=== PATIENT | male | born 1970 | race African-American/Black ===

== ENCOUNTER 2019-08-07 20:11 | Inpatient (IN) | payer MEDICAID ==
[~2019-08-07] VITALS: Ht 180.3 cm; Wt 104.3 kg
--- NOTE | ~2019-08-07 | EC ---
PATIENT:JUAN MCKENNA DATE OF SERVICE: 08/07/19 SEX: M MEDICAL RECORD: [id number] DATE OF : 74 LOCATION:[place] [address] AGE OF PATIENT: 48 ADMISSION DATE: 08/07/19 REFERRING PHYSICIAN: INTERPRETING PHYSICIAN: AGNES ABDALLA MD ECHOCARDIOGRAM REPORT ECHO CHARGES 4 ECHO COMPLETE Date: 08/08/19 CLINICAL DIAGNOSIS: POSSIBLE CHF ECHOCARDIOGRAPHIC MEASUREMENTS (adult normal given) AC root (d.<3.7cm) 3.3 cm LV Septum d (<1.2 cm> 1.0 cm Valve Excursion 2.2 cm LV Septum (systole) 1.4 cm Left Atria (s.<4.0cm> 3.5 cm LVPW d(<1.2cm) 1.3 cm RV (d.<2.3cm) 3.9 cm LVPW (sytole) 1.4 cm LV diastole(<5.6CM) 5.1 cm MV E-F(>70mm/sec) cm LV systole 3.3 cm LVOT Diameter 1.6 cm MV exc.(>10mm) cm Est.ejection fraction (50-75%) % DOPPLER: LVIT cm/sec A 50 cm/sec E 55 cm/sec LA cm/sec RVSP 34.3 mmHg LVOT 100 cm/sec AOP1/2T m/s Asc. Ao 111 cm/sec RVOT 78 cm/sec RA cm/sec PA 93 cm/sec AV Gradient Peak 4.9 mmHg AV Mean 3.1 mmHg AV Area 1.7 cm MV Gradient Peak 4.0 mmHg MV Mean 2.2 mmHg MV Area cm COMMENTS: Java Scala Developer: Conchita [facility] Manager Operations And Procurement: 3 Dr. Bailey TAPE# PACS Pericardial Effusion N DATE OF SERVICE: Adequate 2D, color flow imaging, spectral Doppler, and M-Mode. Borderline LVH. LV internal dimensions are normal. Wall motion is normal. EF is greater than or equal to 55%. Aortic valve is tricuspid. No evidence of stenosis by Doppler interrogation. Left atrium is normal at 3.5 cm. Mitral valve shows no prolapse. Trace MR. Right-sided chambers are grossly normal. Trace TR. ECHOCARDIOGRAM REPORT [id number] JUAN MCKENNA TRANSINT:[id number] Voice Confirmation ID: [id number] DOCUMENT ID: [id number] AGNES ABDALLA MD CC: [id number] DICTATION DATE: 08/08/19 1609 ANGER CONTROL COUNSELOR: 08/08/19 2328 ADM IN [place] [id number] [place] [id number]
--- NOTE | 2019-08-07 20:25 | NUR ---
PT TRANSFERRED FROM [place] FOR SEPSIS AND DIALYSIS. PT WAS RECIEVING DIALYSIS AND BEGAN HAVING CHILLS AND WAS SENT TO ED WITH A FEVER. PT HAS NEGATIVE COVID TEST. PT DENIES ANY COMPLAINTS AT THIS TIME. NO ACUTE DISTRESS NOTED, BED IN LOWEST POSITION, CALL LIGHT WITHIN REACH, WILL CONTINUE TO MONITOR.
[2019-08-07] MEDS ORDERED: ACETAMINOPHEN325 MG PO (20:35)
[2019-08-07] MEDS ORDERED: AMITRIPTYLINE H50 MG PO (20:38)
[2019-08-07] MEDS ORDERED: LONITEN10 MG PO ×2 (20:39→20:50)
[2019-08-07] MEDS ORDERED: ASPIRIN EC81 M1 PO (20:39)
[2019-08-07] MEDS ORDERED: PROTONIX40 MG PO ×2 (20:40→20:51)
[2019-08-07] MEDS ORDERED: PLAVIX75 MG PO ×2 (20:40→20:51)
[2019-08-07] MEDS ORDERED: LIPITOR40 MG PO ×2 (20:40→20:51)
[2019-08-07] MEDS ORDERED: LYRICA300 MG PO ×2 (20:41→20:51)
[2019-08-07] MEDS ORDERED: COREG25 MG PO ×2 (20:41→20:51)
[2019-08-07] MEDS ORDERED: LANTUS INS100 UNITS/ SC ×2 (20:43→20:52)
[2019-08-07] MEDS ORDERED: BAYER CHEWABLE81 MG PO (20:50)
[2019-08-07] MEDS ORDERED: ELAVIL75 MG PO (20:50)
[2019-08-07] MEDS ORDERED: RENA-VITE TABL0.8 MG PO (20:52)
[2019-08-07 21:00] VITALS: BP 136/72
[2019-08-07 22:00] VITALS: BP 133/76
--- NOTE | 2019-08-07 22:00 | NUR ---
RECIEVED PT FROM ER WITH HOSPITAL STAFF AT BEDSIDE. ALERT AND ORIENTED X4. RESPIRATIONS EVEN AND UNLABORED. ST ON THE MONITOR. NO VISUAL CUES OF DISTRESS NOTED. DENIES ANY OTHER NEEDS. WILL CONTINUE TO MONITOR.
[2019-08-07 23:00] VITALS: BP 119/61
[2019-08-08] VITALS (14 sets, daily range): BP systolic 86–133; BP diastolic 51–98; Ht 180.3 cm; Wt 104.3 kg
--- NOTE | 2019-08-08 | NUR ---
VSS. ST ON MONITOR. NO VISUAL CUES OF DISTRESS NOTED. WILL CONTINUE TO MONITOR.
--- NOTE | 2019-08-08 02:00 | NUR ---
VSS. ST ON MONITOR. NO VISUAL CUES OF DISTRESS NOTED. WILL CONTINUE TO MONITOR.
[2019-08-08 04:54] LABS: BASOPHILS 0.4 % (0-2); EOSINOPHILS 0.4 % (0-7); HEMATOCRIT 39.4 % (42.0-54.0); HEMOGLOBIN 12.3 g/dL (13.5-17.5); IMMATURE GRANULOCYTES 0.2 % (0-5); LYMPHOCYTES 14.3 % (15-50); MCH 29.6 pg (26.0-34.0); MCHC 31.2 g/dL (31.0-37.0); MCV 94.7 fL (80.0-100.0); MEAN PLATELET VOLUME 10.1 fL (7.4-10.4); NEUTROPHILS 74.7 % (40-80); PLATELET COUNT 233 10x3/uL (130-400); RBC 4.16 10x6/uL (4.20-6.10); RDW 13.1 % (11.5-14.5); WBC 13.4 10x3/uL (4.8-10.8)
[2019-08-08 06:29] LABS: ALBUMIN 3.1 g/dL (3.4-5.0); ANION GAP 15.8 mmol/L (8-16); BILIRUBIN - TOTAL 0.58 mg/dL (0.2-1.3); CALCIUM 8.8 mg/dL (8.5-10.1); CARBON DIOXIDE 26.2 mmol/L (21.0-32.0); CREATININE - SERUM 12.2 mg/dL (0.6-1.3); MAGNESIUM - SERUM 2.3 mg/dL (1.8-2.4); PHOSPHOROUS 5.1 mg/dL (2.5-4.9); PROTEIN - SERUM 7.4 g/dL (6.4-8.2); VANCOMYCIN - RANDOM 41.9 ug/mL (10.0-20.0)
--- NOTE | 2019-08-08 07:00 | NUR ---
PT REPORT RECEIVED FROM SALES CLOSER NURSE. NO ACUTE SIGNS OF DISTRESS NOTED. PT RESTING IN BED. SHIFT ASSESSMENT COMPLETED. WILL CONTINUE TO MONITOR
--- NOTE | 2019-08-08 09:53 | NUR ---
PT RESTING IN BED COMFORTABLY. NO COMPLAINTS NOTED AT THIS TIME. WILL CONTINUE TO MONITOR
--- NOTE | 2019-08-08 11:45 | NUR ---
pt resting in bed. eating lunch tray. no complaints noted at this time. will continue to monitor
--- NOTE | 2019-08-08 13:00 | NUR ---
PT RESTING IN BED. NO COMPLAINTS NOTED AT THIS TIME. VSS. WILL CONTINUE TO MONITOR
--- NOTE | 2019-08-08 14:58 | NUR ---
PT RESTING IN BED. NO COMPLAINTS NOTED AT THIS TIME. RESTING. AWAKENS EASILY. WILL CONTINUE TO MONITOR
--- NOTE | 2019-08-08 17:10 | NUR ---
PT RESTING IN BED. FAMILY AT BEDSIDE. NO ACUTE SIGNS OF DISTRESS NOTED. WILL CONTINUE TO MONITOR
--- NOTE | 2019-08-08 19:45 | NUR ---
Shift assessment complete. Call light within reach. Bed in low position. Will continue to monitor.
--- NOTE | 2019-08-08 21:45 | NUR ---
No changes in condition. Denies needs at this time. Call light within reach. Bed in low position.
--- NOTE | 2019-08-08 23:45 | NUR ---
No change in patient condition. Call light within reach. Bed in low position. Denies needs. Will continue to monitor.
--- NOTE | 2019-08-09 00:30 | NUR ---
Patient requested sleeping aid so call to Dr. Chilel to obtain orders for sleeping aid. Returned to patient bedside at approximately 0045 and patient resting with eyes closed.
[2019-08-09 03:00] VITALS: BP 102/43
--- NOTE | 2019-08-09 03:21 | NUR ---
No change in patient condition. Call light in reach. Bed in low position Lab here to draw blood chemistry. Will continue to monitor.
[2019-08-09 03:35] LABS: HEMATOCRIT 36.7 % (42.0-54.0); HEMOGLOBIN 11.6 g/dL (13.5-17.5); MCH 29.7 pg (26.0-34.0); MCHC 31.6 g/dL (31.0-37.0); MCV 94.1 fL (80.0-100.0); MEAN PLATELET VOLUME 9.5 fL (7.4-10.4); PLATELET COUNT 200 10x3/uL (130-400); RDW 13.1 % (11.5-14.5); WBC 12.9 10x3/uL (4.8-10.8)
[2019-08-09 04:03] LABS: CALCIUM 8.5 mg/dL (8.5-10.1); CARBON DIOXIDE 26.9 mmol/L (21.0-32.0); CHLORIDE - SERUM 93 mmol/L (98-107); CREATININE - SERUM 15.1 mg/dL (0.6-1.3); GLUCOSE 217 mg/dL (74-106); POTASSIUM - SERUM 5.3 mmol/L (3.5-5.1); SODIUM 129 mmol/L (136-145); eGFR NON AFRICAN AMERICAN 4 mL/min (90-120)
[2019-08-09 04:06] LABS: CALC OSMOLALITY 283 mosm/kg (275-300); PHOSPHOROUS 6.6 mg/dL (2.5-4.9); TROPONIN-I < 0.017 ng/mL (0.000-0.060); UREA NITROGEN 62 mg/dL (7-18)
[2019-08-09 04:59] LABS: EOSINOPHILS 3 % (0-7); LYMPHOCYTES 34 % (15-50); MONOCYTES 7 % (2-11); NEUTROPHILS 54 % (40-80); PLATELET ESTIMATE NORMAL
--- NOTE | 2019-08-09 05:20 | NUR ---
Patient resting without complaints. On monitor with alarms set. Bed in low position with side rails up x 2. Denies pain. Call light within reach. AM care with bath and linens changed.
[2019-08-09 07:00] VITALS: BP 98/63
--- NOTE | 2019-08-09 07:00 | NUR ---
REPORT RECIEVED, SHIFT ASSESSMENT COMPLETE, PT IS ALERT AND ORIENTED, ON RA WITH 96% O2 SAT, ALL PPP, VSS, CALL LIGHT IN REACH
--- NOTE | 2019-08-09 09:00 | NUR ---
FAMILY AT BEDSIDE, UPDATE GIVEN
--- NOTE | 2019-08-09 10:36 | NUR ---
Nutrition follow-up: Diet: Renal ADA consistent CHO PO Intake 100% of breakfast this am Labs reviewed Wt: 229# HD today PO intake is good at this time. RDN following.
--- NOTE | 2019-08-09 11:00 | NUR ---
PT UP IN CHAIR, DENIES ANY NEEDS
--- NOTE | 2019-08-09 13:00 | NUR ---
NO NEEDS NOTED AT THIS TIME, WILL CON'T TO MONITOR
[2019-08-09 15:00] VITALS: BP 155/81
--- NOTE | 2019-08-09 15:15 | NUR ---
FAMILY AT BEDSIDE, UPDATE GIVEN
--- NOTE | 2019-08-09 17:08 | NUR ---
PT TO DIALYSIS AT THIS TIME, VIA WHEELCHAIR
[2019-08-09 20:30] VITALS: BP 149/77
--- NOTE | 2019-08-09 21:04 | NUR ---
PT TO ROOM 2110 FROM DIALYSIS VIA WHEELCHAIR ACCOMPANIED BY AND HOSPITAL STAFF.
[2019-08-10 04:30] VITALS: BP 102/60
[2019-08-10 05:13] LABS: BASOPHILS 0.4 % (0-2); EOSINOPHILS 3.6 % (0-7); HEMATOCRIT 36.8 % (42.0-54.0); HEMOGLOBIN 11.6 g/dL (13.5-17.5); IMMATURE GRANULOCYTES 0.3 % (0-5); LYMPHOCYTES 17.5 % (15-50); MCH 29.5 pg (26.0-34.0); MCHC 31.5 g/dL (31.0-37.0); MCV 93.6 fL (80.0-100.0); MEAN PLATELET VOLUME 10.3 fL (7.4-10.4); MONOCYTES 16.1 % (2-11); NEUTROPHILS 62.1 % (40-80); RBC 3.93 10x6/uL (4.20-6.10); RDW 13.1 % (11.5-14.5); WBC 14.1 10x3/uL (4.8-10.8)
[2019-08-10 05:18] LABS: PLATELET COUNT 266 10x3/uL (130-400)
[2019-08-10 05:29] LABS: ANION GAP 14.3 mmol/L (8-16); CALCIUM 8.6 mg/dL (8.5-10.1); CARBON DIOXIDE 25.5 mmol/L (21.0-32.0); CREATININE - SERUM 12.4 mg/dL (0.6-1.3); PHOSPHOROUS 6.1 mg/dL (2.5-4.9); POTASSIUM - SERUM 4.8 mmol/L (3.5-5.1); VANCOMYCIN - RANDOM 27.2 ug/mL (10.0-20.0)
--- NOTE | 2019-08-10 07:00 | NUR ---
BEDSIDE REPORT RECEIVED. SHIFT ASSESSMENT COMPLETED PER FLOWSHEET, SEE FLOWSHEET FOR INFORMATION. PT RESTING IN BED WATCHING TV WITH S/O AT BEDSIDE. PT DENIES ANY ACUTE NEEDS OR DISTRESS NOTED AT THIS TIME. BED IN LOWEST POSITION, CALL LIGHT WITHIN REACH. WILL CONT TO MONITOR.
--- NOTE | 2019-08-10 11:54 | NUR ---
PT DISCHARGED TO PERSONAL VEHICLE VIA WHEELCHAIR FROM ROOM 2110 ACCOMPANIED BY NURSE. PT DENIES ANY ACUTE NEEDS OR DISTRESS, VERBALIZED THAT HE HAD ALL HIS PERSONAL ITEMS HE BROUGHT WITH HIM. S/O AT BEDSIDE AND AGREED.
--- NOTE | 2019-08-11 21:09 | MORECARE ---
CASE MANAGEMENT DISCHARGE SUMMARY PATIENT: JUAN MCKENNA UNIT: [id number] ADM DATE: 08/07/19 AGE: 48 : 74 SEX: M ROOM/BED: D.2110 AUTHOR: YANA,DOC PHYSICIAN: REFERRING PHYSICIAN: ANTOLIN GUTIERREZ MD DATE OF SERVICE: 08/11/19 Discharge Plan Patient Name: JUAN MCKENNA Facility: [facility]:[place] : 1970 Planned Disposition: Home Anticipated Discharge Date: Discharge Date: 08/10/2019 Expected LOS: Initial Reviewer: [email or web address] Initial Review Date: 08/07/2019 Generated: 08/11/19 10:08 pm Comments DCP- Discharge Planning Updated by [email or web address]: Jaclyn Campbell on 08/11/19 8:[address] LATE ENTRY 08/10/19 Patient Name: JUAN MCKENNA Admission Status: ER Accout number: [id number] Admission Date: 08-07-2019 : 1970 Admission Diagnosis:SEPSIS, UNSPECIFIED ORGANISM Attending: ANTOLIN GUTIERREZ Current LOS: 3 Anticipated DC Date: Planned Disposition: Home Primary Insurance: MEDICAID [place] Discharge Planning Comments: CM met with patient to complete initial dc planning assessment. CM educated patient on the CM role and verbal consent given by patient to complete assessment. Patient lives at home with family. Patient is independent. At discharge patient plans to return home and feels this is a safe discharge. CM discussed availability of home health, rehab services, and medical equipment. Patient will have family to transport home. Patient denied known discharge needs at this time. CM will continue to follow and will assist as needed with dc plans/needs. Ink Technician: Jaclyn Campbell DCPIA - Discharge Planning Initial Assessment Updated by [email or web address]: Jaclyn Campbell on 08/11/19 9:06 pm * Is the patient Alert and Oriented? Yes * How many steps to enter\exit or inside your home? * PCP denia luke * Pharmacy [facility] or [facility] * Preadmission Environment Home with Family * ADLs Independent * Equipment Wheelchair * List name and contact numbers for known caregivers / representatives who currently or will assist patient after discharge: REINA MCKENNA -[phone] ION NAVA - [phone] * Verbal permission to speak to the caregivers and representatives has been obtained from the patient. Yes * Community resources currently utilized Home Health * Please name any agencies selected above. [facility] [place] - MWF @1000 * Additional services required to return to the preadmission environment? No * Can the patient safely return to the preadmission environment? Yes * Has this patient been hospitalized within the prior 30 days at any hospital? No Patient Name: JUAN MCKENNA Page [phone] at 2109 All edits/amendments must be made on the electronic document DICTATION DATE: 08/11/192107 MANAGER TRADE: OLIMPIA 08/11/192107 RPT#: [id number] DC DATE:08/10/19 STATUS: DIS IN [facility] [address] [place] [address] END OF REPORT
== END 2019-08-10 12:38 | disposition home or self-care (01) | DRG 872 ==
LOC: D.ER 20:11 → D.ICU 20:31 → D.M2 08-09 19:12
PROVIDERS: Family Medicine; Internal Medicine Nephrology; ADMIT Internal Medicine Nephrology; ATTEND Internal Medicine Nephrology
DX: A41.9 Sepsis, unspecified organism (principal); E11.9 Type 2 diabetes mellitus without complications; I10 Essential (primary) hypertension; I25.10 Atherosclerotic heart disease of native coronary artery without angina pectoris; E11.42 Type 2 diabetes mellitus with diabetic polyneuropathy; K21.9 Gastro-esophageal reflux disease without esophagitis; E66.9 Obesity, unspecified; I95.9 Hypotension, unspecified; F17.200 Nicotine dependence, unspecified, uncomplicated; Z68.32 Body mass index [BMI] 32.0-32.9, adult; R50.9 Fever, unspecified

== ENCOUNTER 2020-04-28 07:05 | Outpatient (CLI) | payer MEDICAID ==
[~2020-04-28] VITALS: Ht 180.3 cm; Wt 104.5 kg
--- NOTE | ~2020-04-28 | HEMODYNAMI ---
PATIENT:JUAN MCKENNA MEDICAL RECORD: [id number] : 74 LOCATION:[place] ADMISSION DATE: 04/28/20 Generatedon:112:25 Patient name: JUAN MCKENNA Patient #: [id number] SSN: : 1970 Date of study: 04/28/2020 Page: Of Hemodynamic Procedure Report Patient Data Patient Demographics Procedure consent was obtained First Name: JUAN Gender: Male Last Name: CLARISA : 1970 Patient #: [id number] Age: 49 year(s) Race: Black Additional ID: [id number] Contact details Address: [address] [place] [address] State: [place] City: [place] Zip code: [address] Past Medical History Allergies: No known allergies Admission Admission Data Admission Date: 04/28/2020 Admission Time: 7:05 Procedure Procedure Types Cath Procedure Peripheral Cath Diagnostic Procedure Abd/Extremity Extremities Left Upper Ext. Arteriogram Procedure Description Procedure Date Procedure Date: 04/28/2020 Procedure Start Time: 12:05 Procedure End Time: 12:25 Procedure Staff Name Yanci Ko MD Performing Physician NIEVES RODRÍGUEZ RT Monitor Shay Cary RT Scrub Janet Mojica RN Nurse Gianna Rebollar RN Nurse Procedure Data Cath Procedure Fluoroscopy Diagnostic fluoroscopy Total fluoroscopy Time: 3.5 time: 3.5 min min Diagnostic fluoroscopy Total fluoroscopy dose: 330 dose: 330 mGy mGy Contrast Material Contrast Material Type Amount (ml) Isovue 300 35 Entry Location Entry Primary Successful Side Size Upsize Upsize Entry Closure Succes sful Closure Location (Fr) 1 (Fr) 2 (Fr) Remarks Device Remarks Femoral Right 5 Fr Exoseal artery Procedure Medications Medication Administration Route Dosage Fentanyl I.V. 50 mcg Versed I.V. 1 mg Heparin Flush Bag added to field 2 bags (1000units/500ml NS) Lidocaine 1% added to field 20 Fentanyl I.V. 25 mcg Versed I.V. 0.5 mg Hemodynamics Rest Heart Rate: 97 (bpm) Snapshots Pre Cath Intra NCS Post Cath Vital Signs Time Heart Resp SPO2 etCO2 NIBP (mmHg) Rhythm Pain Sedation Rate (ipm) (%) (mmHg) Status Level (bpm) 11:46:02 97 10 100 154/108(138) NSR 0 (11) 10(A) , No pain 11:50:27 98 10 98 157/110(144) NSR 0 (11) 10(A) , No pain 11:54:51 97 11 98 155/117(134) NSR 0 (11) 10(A) , No pain 11:59:50 96 13 99 0 Measuring NSR 0 (11) 10(A) , No pain 12:00:25 98 12 97 25.7 162/105(137) NSR 0 (11) 10(A) , No pain 12:04:00 99 14 39.4 156/99(141) NSR 0 (11) 10(A) , No pain 12:08:59 97 10 44 Measuring NSR 0 (11) 10(A) , No pain 12:10:23 97 8 98 42.4 Time NSR 0 (11) 10(A) Exceeded , No pain 12:12:42 95 9 96 43.2 137/93(118) NSR 0 (11) 10(A) , No pain 12:16:56 95 9 41.7 125/97(122) NSR 0 (11) 10(A) , No pain 12:21:06 98 8 43.2 138/108(135) NSR 0 (11) 10(A) , No pain 12:25:18 96 13 38.6 129/108(127) NSR 0 (11) 10(A) , No pain Medications Time Medication Route Dose Verified Delivered Reason Notes Effe ctiveness by by 12:01:40 Fentanyl I.V. 50 Sherri Katz for mcg MD Rebollar sedation RN 12:01:50 Versed I.V. 1 mg Sherri Katz for MD Rebollar sedation RN 12:02:08 Heparin Flush added 2 M Víctor Ko used for Bag to bags MD FIERRO procedure (1000units/500ml field NS) 12:02:19 Lidocaine 1% added 20ml Sherri Ko for local to vial MD FIERRO anesthetic field 12:16:09 Fentanyl I.V. 25 M Víctor Katz for mcg MD Rebollar sedation RN 12:16:23 Versed I.V. 0.5 M Víctor Katz for mg MD Rebollar sedation contact center analyst Log Time Note 11:27:03 Use device set IR Diagnostic 11:27:06 ACIST Syringe (19143) opened to sterile field. 11:27:06 ACIST Hand Control (49377) opened to sterile field. 11:27:07 ACIST Manifold (83983) opened to sterile field. 11:27:07 Bag Decanter (2002S) opened to sterile field. 11:27:08 Sterile Angiographic Pack opened to sterile field. 11:27:09 Tegaderm 4 x 4 (1626W) opened to sterile field. 11:27:58 DOC Extension wire (85554) opened to sterile field. 11:27:58 MALONE 260 wire (I73571) opened to sterile field. 11:27:59 MICROPUNCTURE 4FR Cook (J49539) opened to sterile field. 11:28:00 SHEATH 5FR [place] (NHO757) opened to sterile field. 11:28:00 TUBING High Pressure Extension (IABP) opened to sterile field. 11:28:04 - 11:37:48 Janet Mojica RN sent for patient. Start room use. 11:37:51 Time tracking: Regular hours (M-F 7:00 - 5:00) 11:37:55 Plan of Care:Hemodynamics will remain stable., Cardiac rhythm will remain stable., Comfort level will be maintained., Respiratory function will remain adequate., Patient/ family verbilizes understanding of procedure., Procedure tolerated without complication., Recovers from procedure without complications.. 11:38:01 Patient received from Outpatients to IR Alert and oriented. Tansferred to table in Supine position. 11:38:02 Signed procedure consent form obtained from patient. 11:38:03 Warm blankets applied, and erika hugger turned on for patient comfort. 11:38:03 Correct patient and procedure confirmed by team. 11:38:04 ECG and BP/O2 sat monitors applied to patient. 11:38:05 - 11:38:12 H&P Date Dictated: 04/28/2020 H&P Addendum completed by physician on day of procedure. (MUST COMPLETE FOR ALL OUTPATIENTS). 11:38:14 Pre-procedure instructions explained to patient. 11:38:14 Pre-op teaching completed and patient verbalized understanding. 11:38:18 Patient NPO since Midnight. 11:38:28 Patient allergic to No known allergies 11:43:55 Is the patient allergic to Iodine/contrast media? No. 11:43:57 Is patient on blood thinner?No 11:43:58 Patient diabetic? Yes. 11:43:59 If diabetic: On Metformin? No 11:44:00 - 11:44:02 ----Pre-sedation anethsthesia assessment.---- 11:44:05 Previous problem with sedation/anesthesia? No ? 11:44:07 Snore? Yes 11:44:08 Sleep apnea? No 11:44:09 Deviated septum? No 11:44:10 Opens mouth fully? Yes 11:44:11 Sticks out tongue? Yes 11:44:16 Airway obstruction? Yes heart disease 11:44:20 Dentures? No ? 11:44:35 Vital chart was started 11:44:37 Baseline sample Acquired. 11:44:40 Full Disclosure recording started 11:44:45 - 11:46:17 Pre procedure: right dorsailis pedis pulse Doppler 11:46:20 Pre procedure: right posterior tibial pulse Doppler 11:48:01 IV patent on arrival in left hand with 0.9% NaCl at KVO. 11:48:11 Right groin area was prepped with chlora-prep and draped in sterile fashion 11:48:12 Alarms reviewed by RThania NThania 11:48:12 Sharps counted by scrub and verified by RThaniaNThania 11:48:14 - 12:00:35 Procedure started. 12:00:39 Physician arrived 12:00:41 --------ALL STOP TIME OUT------ 12:00:41 Final Timeout: patient, procedure, and site verified with staff and physician. All members of the team are in agreement. 12:00:43 Right groin site verified by team. 12:00:47 Fire Safety Assessment: A--An alcohol-based skin anteseptic being used preoperatively., C--Open oxygen or nitrous oxide is being used. 12:00:51 5) <15 or on dialysis Very severe, or end stage kidney failure. 12:01:11 Maximum allowable contrast dose (3.7 X eGFR X 0.75)13.8 ml. 12:01:40 Fentanyl 50 mcg I.V. was administered by Gianna Rebollar RN; for sedation; Verbal order read back and verified. 12:01:50 Versed 1 mg I.V. was administered by Gianna Rebollar RN; for sedation; Verbal order read back and verified. 12:02:08 Heparin Flush Bag (1000units/500ml NS) 2 bags added to field was administered by Sherri Ko MD; used for procedure; Verbal order read back and verified. 12:02:19 Lidocaine 1% 20ml vial added to field was administered by Sherri Ko MD; for local anesthetic; Verbal order read back and verified. 12:05:26 Local anesthetic to right femoral artery with Lidocaine 1% by Sherri Ko MD.INITIAL ACCESS ONLY 12:05:27 A 5 Fr sheath was inserted into the Right Femoral artery 12:07:13 Access obtained with 4Fr micropunture. 12:12:03 GLIDE WIRE ANGLE 260cm (DV1419) opened to sterile field. 12:12:03 TORQUE DEVICE PLASTIC .038 ( TD01) opened to sterile field. 12:14:36 GLIDE CATHETER 5FR ANGLED 65cm (CG507) opened to sterile field. 12:16:09 Fentanyl 25 mcg I.V. was administered by Gianna Rebollar RN; for sedation; Verbal order read back and verified. 12:16:23 Versed 0.5 mg I.V. was administered by Gianna Rebollar RN; for sedation; Verbal order read back and verified. 12:17:41 ROADRUNNER .035 260 glide wire (B09096) opened to sterile field. 12:19:19 EXOSEAL 5Fr (EX500) opened to sterile field. 12:19:34 Sheath removed intact; hemostasis achieved with Exoseal to the Right Femoral artery. 12:20:48 Procedure ended.(Physican Out) 12:21:03 Fluoroscopy time 03.50 minutes. 12:21:08 Fluoroscopy dose: 330 mGy 12:21:08 Flurop Dose total: 330 12:21:12 Contrast amount:Isovue 300 35ml. 12:21:37 Sharps counted by scrub and verified by R.N. 12:21:41 Post-op/insertion site Right Femoral artery dressed using a 4 x 4 and Tegaderm. 12:21:44 Post Procedure Pulses reassessed and unchanged 12:21:46 Post procedure instruction explained to patient.Patient verbalizes understanding. 12:21:47 Procedure and supply charges have been captured, reviewed, submitted an d are correct. 12:25:20 Vital chart was stopped ::23 Procedure ended. 12:25:23 Full Disclosure recording stopped Device Usage Item Name Manufacture Quantity Catalog Number Hospital Part Current Min imal Lot# / Charge Number Stock Stock Serial# Code ACIST Syringe Acist 1 26824 073485 049466 [id number] 20 (31929) Medical Systems Inc ACIST Hand Acist 1 30224 802842 669101 104205 5 Control Medical (91148) Systems Inc ACIST Acist 1 75804 480904 500954 853441 5 Manifold Medical (48916) Systems Inc Bag Decanter Microtek 1 2001S 278905 34161 517807 5 (2001S) Medical Inc. Sterile Cardinal 1 [id number] 198570 633082 5 Angiographic Health Pack Tegaderm 4 x 3M 1 1626W 263163 863272 451259 5 4 (1626W) SHEATH 5FR Terumo 2 DPG832 890584 894980 320045 5 [place] (DBQ366) DOC Extension Ruano 1 02395 773568 936385 495010 5 wire (40395) Vascular MALONE 260 [place] [facility] 1 N95279 381320 710662 308213 5 wire (K60246) MICROPUNCTURE [facility] 1 N30856 918432 973344 096710 5 4FR HelloWallet (T35629) TUBING High Merit 1 [id number] 691716 710339 266185 5 Pressure Medical Extension (IABP) GLIDE WIRE Terumo 1 NW9160 399483 718048 143615 5 ANGLE 260cm (WY3337) TORQUE DEVICE [place] 1 TD01 509843 364035 531495 5 PLASTIC .038 Scientific ( TD01) GLIDE Terumo 1 CG507 524896 074462 5 CATHETER 5FR ANGLED 65cm (CG507) ROADRUNNER Cook Medical 1 Z05251 723656 334765 977012 5 .035 260 glide wire (Z28150) EXOSEAL 5Fr Cardinal 1 EX500 310350 309380 910521 10 (EX500) Health Signature Audit [place] Stage Time Signature Unsigned Intra-Procedure 04/28/2020 NIEVES RODRÍGUEZ RT 12:25:39 PM (R) [facility] [address] [place] [address]
[~2020-04-28 07:05] MED LIST: ACETAMINOPHEN325 MG PO; AMITRIPTYLINE H50 MG PO; ASPIRIN EC81 M1 PO; BAYER CHEWABLE81 MG PO; COREG25 MG PO; ELAVIL75 MG PO; LANTUS INS100 UNITS/ SC; LIPITOR40 MG PO; LONITEN10 MG PO; LYRICA300 MG PO; PLAVIX75 MG PO; PROTONIX40 MG PO; RENA-VITE TABL0.8 MG PO
[2020-04-28 07:40] LABS: BASOPHILS 0.6 % (0-2); EOSINOPHILS 4.4 % (0-7); HEMATOCRIT 40.9 % (42.0-54.0); HEMOGLOBIN 13.1 g/dL (13.5-17.5); IMMATURE GRANULOCYTES 0.4 % (0-5); LYMPHOCYTE ABS# 2.42 10x3/uL (1.32-3.57); LYMPHOCYTES 17.4 % (15-50); MCH 29.1 pg (26.0-34.0); MCV 90.9 fL (80.0-100.0); MEAN PLATELET VOLUME 10.1 fL (7.4-10.4); MONOCYTES 12.6 % (2-11); NEUTROPHIL ABS# 8.99 10x3/uL (1.78-5.38); NEUTROPHILS 64.6 % (40-80); RDW 14.9 % (11.5-14.5); WBC 13.9 10x3/uL (4.8-10.8)
[2020-04-28 07:44] LABS: PLATELET COUNT 325 10x3/uL (130-400)
[2020-04-28 07:47] LABS: ANION GAP 18.5 mmol/L (8-16); CALCIUM 9.6 mg/dL (8.5-10.1); CREATININE - SERUM 12.1 mg/dL (0.6-1.3); POTASSIUM - SERUM 4.5 mmol/L (3.5-5.1)
[2020-04-28 07:51] LABS: APTT 27.6 SECONDS (22.8-39.4); INR 1.06 (0.85-1.17); PROTIME 12.8 SECONDS (11.6-15.0)
[2020-04-28 08:14] VITALS: Ht 180.3 cm; Wt 104.5 kg
--- NOTE | 2020-04-28 10:32 | NUR ---
1010 RETURNED TO 2515 FROM CTA, AWAITING FUTHER INSTRUCTIONS, WARM BLANKET SUPPLIED FOR COMFORT.
--- NOTE | 2020-04-28 13:19 | NUR ---
6216 SEE POST PROCEDURE CHECKLIST FOR VITAL SIGN TRENDS. AT BEDSIDE.
--- NOTE | 2020-04-28 13:29 | NUR ---
1325 RENAL REGULAR DIET SERVED, WILL FEED PT. SO HE WILL REMAIN AT 30 DEGREES ELEVATION.
--- NOTE | 2020-04-28 14:10 | NUR ---
1405 CLONIDINE .2MG PO RECEIVED FROM PHARMACY AND GIVEN. PT. ATE 100% RENAL ADA DIET.
--- NOTE | 2020-04-28 15:34 | NUR ---
1530 ROUNDS BY RADIOLOGY NURSE.
== END 2020-04-28 16:20 | disposition home or self-care (01) ==
LOC: D.SP 07:05 → D.RAD 10:00 → D.SP 10:00
PROVIDERS: Radiology Vascular & Interventional Radiology; ATTEND Internal Medicine
DX: N18.6 End stage renal disease (principal); Z99.2 Dependence on renal dialysis

== ENCOUNTER → 2020-05-05 10:30 | Outpatient (CLI) | payer MEDICAID ==
[2020-04-28 08:14] VITALS: BMI 32.1
== END | disposition home or self-care (01) ==
LOC: D.CT 10:30
PROVIDERS: ATTEND Radiology Vascular & Interventional Radiology
DX: T81.89XA Other complications of procedures, not elsewhere classified, initial encounter (principal)

== ENCOUNTER → 2020-05-21 09:40 | Day surgery (SDC) | payer MEDICAID ==
[~2020-05-21] VITALS: Ht 180.3 cm; Wt 109.1 kg
--- NOTE | ~2020-05-21 | HEMODYNAMI ---
PATIENT:JUAN MCKENNA MEDICAL RECORD: [id number] : 74 [id number] ADMISSION DATE: 05/21/20 Generatedon:113:02 Patient name: JUAN MCKENNA Patient #: [id number] SSN: : 1970 Date of study: 05/21/2020 Page: Of Hemodynamic Procedure Report Patient Data Patient Demographics Procedure consent was obtained First Name: JUAN Gender: Male Last Name: CLARISA : 1970 Patient #: [id number] Age: 49 year(s) Race: Black Additional ID: [id number] Contact details Address: [address] [place] [address] State: [place] City: [place] Zip code: [address] Past Medical History Allergies: No known allergies Admission Admission Data Admission Date: 05/21/2020 Admission Time: 9:40 Height (in.): 71 BSA: 2.28 (m2) Height (cm.): 180.34 BMI: 33.47 (kg/m2) Weight (lbs.): 240 Weight (kg.): 108.86 Procedure Procedure Types Cath Procedure Peripheral Cath Diagnostic Procedure Abd/Extremity Extremities Left Upper Ext. Arteriogram Procedure Description Procedure Date Procedure Date: 05/21/2020 Procedure Start Time: 11:56 Procedure Staff Name Function Sherri Ko MD Performing Physician Letitia Boykin RT Tool And Machine Maintainer Hayden STRANGE RN Nurse Shay Cary RT Scrub Procedure Data Cath Procedure Fluoroscopy Diagnostic fluoroscopy Total fluoroscopy Time: 6.7 time: 6.7 min min Diagnostic fluoroscopy Total fluoroscopy dose: dose: 1502 mGy 1502 mGy Contrast Material Contrast Material Type Amount (ml) Isovue 300 65 Entry Location Entry Primary Successful Side Size Upsize Upsize Entry Closure Succes sful Closure Location (Fr) 1 (Fr) 2 (Fr) Remarks Device Remarks Femoral Exoseal artery Diagnostic catheters Device Type Used For End Catheter Placement Merit Tanya COOPER 2 5Fr 40CM catheter ([id number]) Merit Impress [place] 5FR. 100CM catheter ([id number]) Merit ULTRA BOLUS FLUSH 5Fr 90CM catheter ([id number]) Procedure Medications Medication Administration Route Dosage Benadryl I.V. 50 mg Lidocaine 1% added to field 20 Heparin Flush Bag added to field 3 bags (1000units/500ml NS) Fentanyl I.V. 50 mcg Versed I.V. 1 mg Fentanyl I.V. 25 mcg Versed I.V. 0.5 mg Fentanyl I.V. 25 mcg Versed I.V. 0.5 mg Fentanyl I.V. 25 mcg Versed I.V. 0.5 mg Hemodynamics Rest BSA: 2.28 (m2) O2 Consumption: Estimated: 293.23 (ml/min) O2 Consumption indexed : Estimated:128.61 (ml/min/m) Heart Rate: 92 (bpm) Snapshots Pre Cath Intra NCS Post Cath Vital Signs Time Heart Resp SPO2 etCO2 NIBP (mmHg) Rhythm Pain Sedation Rate (ipm) (%) (mmHg) Status Level (bpm) 11:46:26 92 13 26.7 125/84(99) NSR 0 (11) 9(A) , No pain 11:50:30 92 12 42.1 117/87(115) NSR 0 (11) 9(A) , No pain 11:54:42 91 13 42.8 115/81(105) NSR 0 (11) 9(A) , No pain 11:58:52 92 15 93 41.2 126/85(109) NSR 0 (11) 9(A) , No pain 12:03:06 91 11 41.2 108/84(102) NSR 0 (11) 8(A) , No pain 12:07:09 92 10 38.9 113/90(108) NSR 0 (11) 8(A) , No pain 12:11:17 90 11 100 34.4 125/87(107) NSR 0 (11) 9(A) , No pain 12:15:27 93 11 100 43.5 122/96(113) NSR 0 (11) 9(A) , No pain 12:19:37 93 11 100 41.2 114/87(111) NSR 0 (11) 9(A) , No pain 12:23:43 92 14 100 48.1 119/94(115) NSR 0 (11) 8(A) , No pain 12:27:55 94 13 100 45 132/86(119) NSR 0 (11) 8(A) , No pain 12:32:07 91 10 100 43.5 118/99(114) NSR 0 (11) 8(A) , No pain 12:36:15 91 12 100 43.5 118/107(113) NSR 0 (11) 8(A) , No pain 12:40:27 91 10 100 37.4 107/85(102) NSR 0 (11) 8(A) , No pain 12:44:30 91 14 35.1 114/93(113) NSR 0 (11) 8(A) , No pain 12:48:36 90 11 100 35.1 120/107(117) NSR 0 (11) 8(A) , No pain 12:52:46 91 10 100 42.7 101/85(99) NSR 0 (11) 8(A) , No pain 12:57:45 90 17 100 42 114/76(103) NSR 0 (11) 8(A) , No pain Medications Time Medication Route Dose Verified Delivered Reason Notes Effe ctiveness by by 11:44:34 Benadryl I.V. 50 mg M J Long Minner for MD ALIE sedation RN 11:44:42 Lidocaine 1% added 20ml M J Long Minner for local to vial MD ALIE anesthetic field RN 11:44:55 Heparin Flush added 3 M J Long Minner used for Bag to bags MD ALIE procedure (1000units/500ml field RN NS) 11:58:56 Fentanyl I.V. 50 M J Long Minner for mcg MD ALIE sedation RN 11:59:02 Versed I.V. 1 mg M J Long Minner for MD ALIE sedation RN 12:11:45 Fentanyl I.V. 25 M J Long Minner for mcg MD ALIE sedation RN 12:11:49 Versed I.V. 0.5 M J Long Minner for mg MD ALIE sedation RN 12:19:38 Fentanyl I.V. 25 M J Long Minner for mcg MD ALIE sedation RN 12:19:40 Versed I.V. 0.5 M J Long Minner for mg MD ALIE sedation RN 12:31:29 Fentanyl I.V. 25 M Víctor Blake for mcg MD STRANGE sedation RN 12:31:32 Versed I.V. 0.5 M Víctor Blake for mg MD ALIE bruner redipper Log Time Note 10:37:28 Patient Height : 71 inches 10:37:36 Patient Weight : 240 lbs 10:38:04 Use device set IR Diagnostic 10:38:31 DOUBLE ENDED GUIEDWIRE DOC 145CM (S51609) opened to sterile field. 10:38:32 Micropuncture VSI 4FR kit opened to sterile field. 10:38:33 TUBING Contrast Injection High Pressure (JQT962Q) opened to sterile field. 10:38:34 SHEATH 5FR [place] (KVI821) opened to sterile field. 10:38:35 Tegaderm 4 x 4 (1626W) opened to sterile field. 10:38:36 Sterile Angiographic Pack opened to sterile field. 10:38:38 Bag Decanter (2002S) opened to sterile field. 10:38:40 ACIST Manifold (12088) opened to sterile field. 10:38:42 ACIST Hand Control (72250) opened to sterile field. 10:38:43 ACIST Syringe (81506) opened to sterile field. 10:38:48 - 11:33:52 Time tracking: Regular hours (M-F 7:00 - 5:00) 11:34:21 Plan of Care:Hemodynamics will remain stable., Cardiac rhythm will remain stable., Comfort level will be maintained., Respiratory function will remain adequate., Patient/ family verbilizes understanding of procedure., Procedure tolerated without complication., Recovers from procedure without complications.. 11:34:36 Patient received from Outpatients to IR Alert and oriented. Tansferred to table in Supine position. 11:34:44 Signed procedure consent form obtained from patient. 11:34:56 H&P Date Dictated: 05/21/2020 Within 30 days and on chart., H&P Addendum completed by physician on day of procedure. (MUST COMPLETE FOR ALL OUTPATIENTS). 11:35:01 Pre-procedure instructions explained to patient. 11:35:01 Pre-op teaching completed and patient verbalized understanding. 11:35:03 Family unavailable. 11:35:06 Patient NPO since Midnight. 11:35:22 Patient allergic to No known allergies 11:35:26 Is the patient allergic to Iodine/contrast media? No. 11:35:39 Is patient on blood thinner?No 11:35:52 Patient diabetic? Yes. 11:35:56 If diabetic: On Metformin? No 11:36:08 - 11:36:09 ----Pre-sedation anethsthesia assessment.---- 11:36:13 Previous problem with sedation/anesthesia? No ? 11:36:19 Snore? Yes 11:36:21 Sleep apnea? No 11:36:28 Deviated septum? No 11:36:30 Opens mouth fully? Yes 11:36:32 Sticks out tongue? Yes 11:36:40 Airway obstruction? Yes heart disease 11:36:44 Dentures? No ? 11:44:34 Benadryl 50 mg I.V. was administered by Hayden STRANGE RN; for sedation ; Verbal order read back and verified. 11:44:42 Lidocaine 1% 20ml vial added to field was administered by Hayden Daniel RN; for local anesthetic; Verbal order read back and verified. 11:44:55 Heparin Flush Bag (1000units/500ml NS) 3 bags added to field was administered by Hayden STRANGE RN; used for procedure; Verbal order read back and verified. 11:44:58 Vital chart was started 11:53:22 Baseline sample Acquired. 11:53:25 Full Disclosure recording started 11:53:26 - 11:53:34 Left groin area was prepped with chlora-prep and draped in sterile fashion 11:53:36 Alarms reviewed by Dirk Eason 11:53:37 - 11:53:42 5) <15 or on dialysis Very severe, or end stage kidney failure. 11:53:48 Fire Safety Assessment: A--An alcohol-based skin anteseptic being used preoperatively., C--Open oxygen or nitrous oxide is being used. 11:55:18 Physician arrived 11:55:19 --------ALL STOP TIME OUT------ 11:55:20 Final Timeout: patient, procedure, and site verified with staff and physician. All members of the team are in agreement. 11:56:10 Procedure started. 11:56:31 Local anesthetic to left femerol artery with Lidocaine 1% by Sherri Ko MD.INITIAL ACCESS ONLY 11:58:56 Fentanyl 50 mcg I.V. was administered by Hayden STRANGE RN; for sedation; Verbal order read back and verified. 11:59:02 Versed 1 mg I.V. was administered by Hayden STRANGE RN; for sedation; Verbal order read back and verified. 12:11:45 Fentanyl 25 mcg I.V. was administered by Hayden STRANGE RN; for sedation; Verbal order read back and verified. 12:11:49 Versed 0.5 mg I.V. was administered by Hayden STRANGE RN; for sedation; Verbal order read back and verified. 12:19:38 Fentanyl 25 mcg I.V. was administered by Hayden STRANGE RN; for sedation; Verbal order read back and verified. 12:19:40 Versed 0.5 mg I.V. was administered by Hayden STRANGE RN; for sedation; Verbal order read back and verified. 12:23:53 Arterial access obtained using ultrasound guidance. 12:31:15 AMPLATZ Super Stiff 75cm wire ([id number]) opened to sterile field. 12:31:29 Fentanyl 25 mcg I.V. was administered by Hayden STRANGE RN; for sedation; Verbal order read back and verified. 12:31:32 Versed 0.5 mg I.V. was administered by Hayden STRANGE RN; for sedation; Verbal order read back and verified. 12:40:19 A Pictorious Impress KA 2 5Fr 40CM catheter ([id number]) was advanced over the wire and used for . 12:40:27 A Pictorious Impress Lagunas 5FR. 100CM catheter ([id number]) was advanced over the wire and used for . 12:42:56 GLIDE WIRE ANGLE 260cm (KF7438) opened to sterile field. 12:43:04 TORQUE DEVICE PLASTIC .038 ( TD01) opened to sterile field. 12:47:56 A Pictorious ULTRA BOLUS FLUSH 5Fr 90CM catheter ([id number]) was advanced over the wire and used for . 12:54:25 A sheath was inserted into the Femoral artery 12:54:25 Sheath removed intact; hemostasis achieved with Exoseal to the Femoral artery. 12:54:35 EXOSEAL 5Fr (EX500) opened to sterile field. 12:56:02 Procedure ended.(Physican Out) 12:56:21 Fluoroscopy time 06.70 minutes. 12:56:27 Fluoroscopy dose: 1502 mGy 12:56:27 Flurop Dose total: 1502 12:56:50 Contrast amount:Isovue 300 65ml. 12:58:27 Procedure and supply charges have been captured, reviewed, submitted an d are correct. 12:58:32 Report given to Outpatients. 13:02:08 Vital chart was stopped Device Usage Item Name Manufacture Quantity Catalog Number Hospital Part Current [facility] Lot# / Charge Number Stock Stock Serial# Code DOUBLE ENDED Cook Medical 1 [id number] 111901 1 GUIEDWIRE DOC 145CM (H94866) Micropuncture VSI VASCULAR 1 7266V 585024 846667 5 VSI 4FR kit SOLUTIONS TUBING Merit 1 [id number] 351883 416262 766570 5 Contrast Medical Injection High Pressure (YBF404L) SHEATH 5FR Terumo 1 KAP427 835259 603517 633563 5 [place]uddy (YAS430) Tegaderm 4 x 4 3M 1 1626W 447138 092633 782266 5 (1626W) Sterile Cardinal 1 [id number] 529998 353356 5 Angiographic Health Pack Bag Decanter Microtek 1 2001S 160020 44635 199236 5 (2001S) Medical Inc. ACIST Manifold Acist 1 27171 053480 225842 823308 5 (47602) Medical Systems Inc ACIST Hand Acist 1 26847 726437 470815 887000 5 Control Medical (56795) Systems Inc ACIST Syringe Acist 1 82340 743526 606067 162410 20 (08382) Medical Systems Inc AMPLATZ Super [place] 1 [id number] 967386 114770 522730 5 Stiff 75cm Scientific wire ([id number]) Merit Impress Merit 1 19113IG9 770993 050244 5 KA 2 5Fr 40CM Medical catheter (49747BC9) Merit Impress Merit 1 [id number] 836219 185545 5 Lagunas 5FR. Medical 100CM catheter (169530RYO) GLIDE WIRE Terumo 1 DO1435 125561 974253 627070 5 ANGLE 260cm (GG9860) TORQUE DEVICE [place] 1 TD01 709171 257517 603883 5 PLASTIC .038 ( Scientific TD01) Merit ULTRA Merit 1 [id number] 582015 834944 5 BOLUS FLUSH Medical 5Fr 90CM catheter ([id number]) EXOSEAL 5Fr Cardinal 1 EX500 634065 845828 407524 10 (EX500) Health Signature Audit [place] Stage Time Signature Unsigned Intra-Procedure 05/21/2020 Leittia Boykin 1:02:03 PM RT(R) [place] [id number] [place] [address]
[~2020-05-21 09:40] MED LIST changes: +TORADOL10 MG
[2020-05-21 10:12] LABS: ANION GAP 18.7 mmol/L (8-16); CARBON DIOXIDE 26.4 mmol/L (21.0-32.0); CREATININE - SERUM 12.5 mg/dL (0.6-1.3); POTASSIUM - SERUM 5.1 mmol/L (3.5-5.1)
[2020-05-21 10:16] VITALS: Ht 180.3 cm; Wt 109.1 kg
[2020-05-21 10:30] LABS: APTT 31.3 SECONDS (22.8-39.4)
[2020-05-21 11:17] LABS: BASOPHILS 1.5 % (0-2); EOSINOPHILS 5.2 % (0-7); HEMATOCRIT 49.6 % (42.0-54.0); HEMOGLOBIN 15.3 g/dL (13.5-17.5); IMMATURE GRANULOCYTES 0.3 % (0-5); LYMPHOCYTE ABS# 2.34 10x3/uL (1.32-3.57); LYMPHOCYTES 21.6 % (15-50); MCH 29.5 pg (26.0-34.0); MCHC 30.8 g/dL (31.0-37.0); MCV 95.6 fL (80.0-100.0); MEAN PLATELET VOLUME 11.1 fL (7.4-10.4); MONOCYTES 16.2 % (2-11); NEUTROPHIL ABS# 5.99 10x3/uL (1.78-5.38); NEUTROPHILS 55.2 % (40-80); PLATELET COUNT 352 10x3/uL (130-400); RBC 5.19 10x6/uL (4.20-6.10); RDW 15.1 % (11.5-14.5); WBC 10.8 10x3/uL (4.8-10.8)
[2020-05-21 11:33] LABS: INR 1.06 (0.85-1.17); PROTIME 12.8 SECONDS (11.6-15.0)
--- NOTE | 2020-05-21 17:00 | NUR ---
DRESSING TO LEFT GROIN REMAINS CDI, NO HEMATOMA NOTED, AREA AROUND DRESSING SOFT. PT NOW ABLE TO GET UP AND DRESSED FOR DISCHARGE. PIV DC'D, CATH TIP INTACT, HELPING PT TO DRESS. PT STATES HE WILL GO TO BATHROOM FOR BM AFTER GETTING DRESSED.
--- NOTE | 2020-05-21 17:20 | NUR ---
DC INSTRUCTIONS REVIEWED WITH PT AND SPOUSE. COPIES GIVEN. BOTH VOICED UNDERSTANDING.
--- NOTE | 2020-05-21 17:30 | NUR ---
PATIENT DC'D TO POV, DC PACKET AND BELONGINGS WITH . ACCOMPANIED BY THIS NURSE AND JIMENA.
== END | disposition home or self-care (01) ==
LOC: D.SP 09:40 → EDSTATUS 10:30 → D.SP 10:30 → D.RAD 10:30
PROVIDERS: ATTEND Radiology Vascular & Interventional Radiology
DX: N18.6 End stage renal disease (principal); Z99.2 Dependence on renal dialysis; E11.9 Type 2 diabetes mellitus without complications; I25.10 Atherosclerotic heart disease of native coronary artery without angina pectoris; S41.102A Unspecified open wound of left upper arm, initial encounter; T81.89XA Other complications of procedures, not elsewhere classified, initial encounter

== ENCOUNTER → 2020-07-16 16:22 | Outpatient (CLI) | payer MEDICAID ==
[2020-05-21 10:16] VITALS: BMI 33.5
== END | disposition home or self-care (01) ==
LOC: D.CT 16:22
PROVIDERS: ATTEND Surgery
DX: I73.9 Peripheral vascular disease, unspecified (principal)

== ENCOUNTER 2020-07-30 09:57 | Inpatient (IN) | payer MEDICAID ==
[~2020-07-30] VITALS: Ht 180.3 cm; Wt 118.7 kg
--- NOTE | ~2020-07-30 | HEMODYNAMI ---
PATIENT:JUAN MCKENNA MEDICAL RECORD: [id number] : 74 [id number] ADMISSION DATE: 07/30/20 Generatedon:110:13 Patient name: JUAN MCKENNA Patient #: [id number] SSN: : 1970 Date of study: 08/04/2020 Page: Of Hemodynamic Procedure Report Patient Data Patient Demographics Procedure consent was obtained First Name: JUAN Gender: Male Last Name: CLARISA : 1970 Patient #: [id number] Age: 49 year(s) Race: Black Additional ID: [id number] Contact details Address: [address] [place] [address] State: [place] City: [place] Zip code: [address] Past Medical History Allergies: No known allergies Admission Admission Data Admission Date: 07/30/2020 Admission Time: 13:27 Room #: [facility] Height (in.): 71 BSA: 2.25 (m2) Height (cm.): 180.34 BMI: 32.64 (kg/m2) Weight (lbs.): 234 Weight (kg.): 106.14 Procedure Procedure Types Cath Procedure Peripheral Cath Diagnostic Procedure Abd/Extremity Extremities Right Upper Ext. Arteriogram Procedure Description Procedure Date Procedure Date: 08/04/2020 Procedure Start Time: 9:32 Procedure Staff Name Function Krunal Chiu MD Performing Physician Letitia Boykin RT Presales Senior Specialist Janet Mojica RN Nurse Gianna Rebollar RN Nurse NIEVES RODRÍGUEZ RT Scrub Procedure Data Cath Procedure Diagnostic catheters Device Type Used For End Catheter Placement Tree Lagunas 5FR. 100CM catheter ([id number]) Procedure Medications Medication Administration Route Dosage Lidocaine 1% added to field 20 Heparin Flush Bag added to field 3 bags (1000units/500ml NS) Fentanyl I.V. 100 mcg Versed I.V. 2 mg Hemodynamics Rest BSA: 2.25 (m2) O2 Consumption: Estimated: 290.77 (ml/min) O2 Consumption indexed : Estimated:129.23 (ml/min/m) Heart Rate: 94 (bpm) Snapshots Pre Cath Intra NCS Post Cath Vital Signs Time Heart Resp SPO2 etCO2 NIBP (mmHg) Rhythm Pain Sedation Rate (ipm) (%) (mmHg) Status Level (bpm) 9:08:02 117 5 68 39.1 No Cuff NSR 0 (11) 10(A) , No pain 9:13:01 116 11 37.6 Measuring NSR 0 (11) 10(A) , No pain 9:14:25 115 13 36.8 Time NSR 0 (11) 10(A) Exceeded , No pain 9:18:35 116 12 98 28.5 No Cuff NSR 0 (11) 10(A) , No pain 9:22:08 115 11 100 30.8 Aborted NSR 0 (11) 10(A) , No pain 9:25:07 115 11 100 28.5 123/111(116) NSR 0 (11) 10(A) , No pain 9:30:06 114 10 100 40.6 Measuring NSR 0 (11) 10(A) , No pain 9:31:19 115 12 100 37.6 133/120(129) NSR 0 (11) 10(A) , No pain 9:36:19 115 12 100 39.8 Measuring NSR 0 (11) 10(A) , No pain 9:36:41 115 13 100 38.3 93/56(62) NSR 0 (11) 10(A) , No pain 9:40:45 114 8 98 14.2 53/40(48) NSR 0 (11) 8(A) , No pain 9:43:43 113 7 98 12 Disturbed NSR 0 (11) 8(A) , No pain 9:47:02 113 8 99 13.5 Time NSR 0 (11) 8(A) Exceeded , No pain 9:50:37 112 8 98 12.7 Time NSR 0 (11) 8(A) Exceeded , No pain 9:52:05 116 9 99 41.4 112/83(104) NSR 0 (11) 8(A) , No pain 9:57:04 114 8 100 21.8 Measuring NSR 0 (11) 8(A) , No pain 9:58:14 115 9 100 39.8 175/130(141) NSR 0 (11) 8(A) , No pain 10:02:46 119 12 99 41.3 89/51(81) NSR 0 (11) 8(A) , No pain 10:06:47 119 10 99 12 60/44(49) NSR 0 (11) 8(A) , No pain 10:11:47 116 10 99 12.7 Measuring NSR 0 (11) 8(A) , No pain 10:12:27 117 10 98 21 181/154(172) NSR 0 (11) 8(A) , No pain Medications Time Medication Route Dose Verified Delivered Reason Notes Effect iveness by by 9:17:02 Lidocaine 1% added 20ml Krunal Hector used for to vial Aram Chiu MD procedure field MD 9:17:24 Heparin Flush added 3 Krunal Hector used for Bag to bags Aram Chiu MD procedure (1000units/500ml field NS) 9:37:48 Fentanyl I.V. 100 Krunal Gonzales for mcg Yunior Chiu RN sedation MD 9:38:04 Versed I.V. 2 mg Krunal Gonzales for Yunior Chiu RN sedation MD Procedure Log Time Note 8:40:01 Patient Height : 71 inches 8:40:01 Patient Weight : 234 lbs 8:40:25 Use device set IR Diagnostic 8:41:09 ACIST Syringe (79617) opened to sterile field. 8:41:10 ACIST Hand Control (40146) opened to sterile field. 8:41:11 ACIST Manifold (12992) opened to sterile field. 8:41:11 Bag Decanter (2001S) opened to sterile field. 8:41:12 Sterile Angiographic Pack opened to sterile field. 8:41:13 Tegaderm 4 x 4 (1626W) opened to sterile field. 8:41:13 Micropuncture VSI 4FR kit opened to sterile field. 8:41:14 SHEATH 5FR [place] (PIP667) opened to sterile field. 8:41:15 DOUBLE ENDED GUIEDWIRE DOC 145CM (H05887) opened to sterile field. 8:41:15 TUBING Contrast Injection High Pressure (BTP959E) opened to sterile field. 8:41:19 - 8:47:05 Time tracking: Regular hours (M-F 7:00 - 5:00) 8:47:28 Plan of Care:Hemodynamics will remain stable., Cardiac rhythm will remain stable., Comfort level will be maintained., Respiratory function will remain adequate., Patient/ family verbilizes understanding of procedure., Procedure tolerated without complication., Recovers from procedure without complications.. 8:47:38 Patient received from [employer] II to IR Alert and oriented. Tansferred to table in Supine position. 8:47:40 Signed procedure consent form obtained from patient. 8:47:53 H&P Date Dictated: 08/04/2020 Within 30 days and on chart.. 8:47:57 Pre-procedure instructions explained to patient. 8:47:58 Pre-op teaching completed and patient verbalized understanding. 8:47:58 Pre-op teaching completed and patient verbalized understanding. 8:48:01 Family in patients room. 8:48:03 Patient NPO since Midnight. 8:48:12 Patient allergic to No known allergies 8:48:19 Is the patient allergic to Iodine/contrast media? No. 8:49:35 Patient diabetic? Yes. 8:49:40 If diabetic: On Metformin? No 8:49:43 - 8:49:45 ----Pre-sedation anethsthesia assessment.---- 8:49:48 Previous problem with sedation/anesthesia? No ? 8:49:54 Snore? Yes 8:49:58 Sleep apnea? No 8:50:02 Deviated septum? No 8:50:06 Opens mouth fully? Yes 8:50:08 Sticks out tongue? Yes 8:50:16 Airway obstruction? No ? 8:50:36 Dentures? Yes secure 8:57:24 Pre procedure: right dorsailis pedis pulse Doppler 8:57:29 Pre procedure: right posterior tibial pulse Doppler 8:57:42 Bilateral groins area was prepped with chlora-prep and draped in steril e fashion 8:57:51 5) <15 or on dialysis Very severe, or end stage kidney failure. 8:57:57 Fire Safety Assessment: A--An alcohol-based skin anteseptic being used preoperatively., C--Open oxygen or nitrous oxide is being used. 8:58:01 - 9:07:11 ECG and BP/O2 sat monitors applied to patient. 9:07:12 Vital chart was started 9:10:45 SHIELD Sorbaview ([id number]) opened to sterile field. 9:11:22 Baseline sample Acquired. 9:11:24 Baseline sample Acquired. 9::28 Full Disclosure recording started 9::28 - 9:17:02 Lidocaine 1% 20ml vial added to field was administered by Krunal Chiu MD; used for procedure; Verbal order read back and verified. 9:17:24 Heparin Flush Bag (1000units/500ml NS) 3 bags added to field was administered by Krunal Chiu MD; used for procedure; Verbal order read back and verified. 9:21:31 Baseline sample Acquired. 9:31:40 Physician arrived 9:31:41 --------ALL STOP TIME OUT------ 9::42 Final Timeout: patient, procedure, and site verified with staff and physician. All members of the team are in agreement. 9:32:04 Procedure started. 9:32:09 Local anesthetic to right femoral artery with Lidocaine 1% by Krunal Chiu MD.INITIAL ACCESS ONLY 9:32:21 Sedation plan: IV Moderate Sedation Medication:Versed, Fentanyl 9:32:38 Arterial access obtained using ultrasound guidance. 9:37:48 Fentanyl 100 mcg I.V. was administered by Janet Mojica RN; for sedation; Verbal order read back and verified. 9:38:04 Versed 2 mg I.V. was administered by Janet Mojica RN; for sedation; Verbal order read back and verified. 9:52:31 A Merit Impress Lagunas 5FR. 100CM catheter ([id number]) was advanced over the wire and used for . 10:02:08 Procedure ended.(Physican Out) 10:13:00 unable to obtain access using ultrasound at either groin 10:13:02 Procedure and supply charges have been captured, reviewed, submitted an d are correct. 10:13:06 Report given to [employer]. 10:13:33 Vital chart was stopped Device Usage Item Name Manufacture Quantity Catalog Hospital Part Current [employer] l Lot# / Number Charge Number Stock Stock Serial# Code ACIST Syringe Acist 1 15016 501222 227165 422084 20 (42304) Medical Systems Inc ACIST Hand Acist 1 97017 307189 303850 034772 5 Control Medical (76469) Systems Inc ACIST Acist 1 79999 271662 160385 421084 5 Manifold Medical (56300) Systems Inc Bag Decanter Microtek 1 2002S 470909 42173 282846 5 (2002S) Medical Inc. Sterile Cardinal 1 [id number] 981040 689564 5 Angiographic Health Pack Tegaderm 4 x 3M 1 1626W 835655 041215 766185 5 4 (1626W) Micropuncture VSI VASCULAR 1 7266V 427629 945460 5 VSI 4FR kit SOLUTIONS SHEATH 5FR Terumo 1 NEN079 243273 397158 639632 5 [place] (VWS826) DOUBLE ENDED Cook Medical 1 G03993 201189 773694 1 GUIEDWIRE DOC 145CM (Q65726) TUBING Merit 1 [id number] 894256 827341 926766 5 Contrast Medical Injection High Pressure (ZLE107Z) SHIELD Centurion 1 [id number] 655744 108296 132730 5 Sorbaview (VT854SKF) Merit Impress Merit 1 [id number] 683227 081594 5 [facility] 5FR. 100CM catheter (030544NOE) Signature Audit [place] Stage Time Signature Unsigned Intra-Procedure 08/04/2020 Letitia Boykin 10:13:29 AM RT(R) [facility] [address] [place] [address]
--- NOTE | ~2020-07-30 | OP ---
PATIENT NAME: JUAN KAPOOR MEDICAL RECORD: [id number] :74 LOCATION:D. D.2109 ADMISSION DATE:07/30/20 SURGEON: SERAFIN SCHAFFER MD DATE OF OPERATION: 08/13/2020 PREOPERATIVE DIAGNOSES: 1. Buerger's disease. 2. Gangrene, right ring finger and left index finger and small finger. POSTOPERATIVE DIAGNOSES: 1. Buerger's disease. 2. Gangrene, right ring finger and left index finger and small finger. PROCEDURE PERFORMED: 1. Partial amputation, right ring finger. 2. Partial amputation, left index finger. 3. Partial amputation, left small finger. INDICATIONS FOR THE PROCEDURE: Mr. 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 His right ring finger has been very painful and he is concerned from an odor originating from the left index finger. He appears to have dry gangrene to these areas. His white blood cell count has been elevated. 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 I talked to him about options for conservative versus surgical management. He would like to proceed with surgery for amputation of these fingertips. Risks, benefits and alternatives of surgery were discussed with the patient and consent was obtained. DESCRIPTION OF PROCEDURE: The patient was met in the holding area where his identity and confirmation of the procedure was performed. The upper extremities were marked and he was taken to the operating room where he was placed supine on the operating table and anesthesia was administered. Tourniquet was applied to both arms and the arms were prepped and draped in a sterile fashion. The patient received preoperative antibiotics and timeout was performed before initiating the case. On initiation of the case, we began with the left upper extremity. The arm was exsanguinated. The tourniquet was raised. Total tourniquet time was 45 minutes. Began with the index finger and an incision was made just distal to the PIP joint, incising it through the skin and subcutaneous tissues dissected down to the middle phalanx to create flaps for our wound closure. The PIP joint was then exposed and the finger was removed at that joint. The tissues appeared to be swollen, but were clean. Cautery was used to obtain hemostasis at the digital arteries and the digital nerves were identified and trimmed proximally. The flexor tendons were cut. The wound was irrigated thoroughly with saline. The rongeur was also used to debride the cartilage over the end of the proximal phalanx. We then moved to the small finger. Again, our incision was made for our exposure and the finger was removed at the PIP joint. Digital arteries were identified and cauterized. The nerves were identified and cut proximally. Rongeur was used to debride the cartilage over the ends of the proximal phalanx. The wound was irrigated thoroughly with saline. We then proceeded with wound closure. The deep tissue was closed with PDS suture. The skin was closed with Prolene. We were able to trim our flaps to allow for good closure. We then applied a sterile dressing to this hand and turned our attention to the right hand. OPERATIVE REPORT [id number] JUAN KAPOOR We then moved to the right upper extremity. The arm was exsanguinated and tourniquet was raised. There was necrosis of the fingertip on the right hand as well as ulcer along the PIP joint radially. Our incision was made to amputate the finger at the PIP joint and we also included the ulcer in our excised tissue. The PIP joint was isolated and exposed and the finger was removed at this level. Tendons were trimmed proximally. There was quite a bit of bleeding on his right arm. The digital arteries were identified and cauterized. Digital nerves were identified and cut proximally. A rongeur was used to debride the cartilage at the end of the proximal phalanx and it was shortened back to the condyles given that we had to include the ulcer and our exposure. Wound was irrigated thoroughly with saline. The deep tissues were then closed with PDS and the skin was closed with Prolene. Sterile dressing was applied and this completed our procedure. The patient was turned back over to anesthesia where he was awakened and taken to recovery room in stable condition. POSTOPERATIVE PLAN: The patient is going to return to the floor for routine postoperative care. Continue his IV antibiotics for at least another 48 hours and we will keep the finger incisions clean and dry. Plan to see him back in clinic in 2 weeks. COMPLICATIONS: None. ESTIMATED BLOOD LOSS: 25 mL. ANESTHESIA: General. TRANSINT:[id number] Voice Confirmation ID: [id number] DOCUMENT ID: [id number] SERAFIN SCHAFFER MD CC: [id number] DICTATION DATE: 08/13/20 1005 PROFESSOR OF JOURNALISM: 08/13/20 1050 ADM IN [place] [id number] [place] [id number]
--- NOTE | ~2020-07-30 | HEMODYNAMI ---
PATIENT:JUAN MCKENNA MEDICAL RECORD: [id number] : 74 LOCATION:[place] [address] ADMISSION DATE: 07/30/20 Generatedon:117:12 Patient name: JUAN MCKENNA Patient #: [id number] SSN: : 1970 Date of study: 07/31/2020 Page: Of Hemodynamic Procedure Report Patient Data Patient Demographics Procedure consent was obtained First Name: JUAN Gender: Male Last Name: CLARISA : 1970 Patient #: [id number] Age: 49 year(s) Race: Black Additional ID: [id number] Contact details [address]: [address] [place] [address] State: [place] City: [place] Zip code: [address] Past Medical History Allergies: No known allergies Admission Admission Data Admission Date: 07/30/2020 Admission Time: 13:27 Room #: [facility] Height (in.): 71 BSA: 2.25 (m2) Height (cm.): 180.34 BMI: 32.64 (kg/m2) Weight (lbs.): 234 Weight (kg.): 106.14 Procedure Procedure Types Cath Procedure Peripheral Cath Diagnostic Procedure Abd/Extremity Extremities Left Upper Ext. Arteriogram Procedure Description Procedure Date Procedure Date: 07/31/2020 Procedure Start Time: 15:54 Procedure Staff Name Function Daniel Cook MD Performing Physician Letitia Boykin RT Agricultural Economics Professor NIEVES RODRÍGUEZ RT Scrub Gianna Rebollar RN Nurse Janet Mojica RN Nurse Procedure Data Cath Procedure Fluoroscopy Diagnostic fluoroscopy Total fluoroscopy Time: time: 18.3 min 18.3 min Diagnostic fluoroscopy Total fluoroscopy dose: 148 dose: 148 mGy mGy Contrast Material Contrast Material Type Amount (ml) Isovue 300 40 Procedure Medications Medication Administration Route Dosage Versed I.V. 1 mg Fentanyl I.V. 50 mcg Fentanyl I.V. 50 mcg Versed I.V. 1 mg Heparin Bolus I.V. 5000 units Lidocaine 1% added to field 20 Heparin Flush Bag added to field 2 bags (1000units/500ml NS) Fentanyl I.V. 50 mcg Fentanyl I.V. 50 mcg Hemodynamics Rest BSA: 2.25 (m2) O2 Consumption: Estimated: 286.18 (ml/min) O2 Consumption indexed : Estimated:127.19 (ml/min/m) Heart Rate: 88 (bpm) Snapshots Pre Cath Intra NCS Post Cath Vital Signs Time Heart Resp SPO2 etCO2 NIBP (mmHg) Rhythm Pain Sedation Rate (ipm) (%) (mmHg) Status Level (bpm) 15:36:52 88 8 98 43.3 170/118(136) NSR 0 (11) 10(A) , No pain 15:41:05 89 7 44.8 134/104(131) NSR 0 (11) 10(A) , No pain 15:45:24 85 7 95 47.8 139/124(133) NSR 0 (11) 10(A) , No pain 15:49:42 88 8 98 38.8 149/126(147) NSR 0 (11) 10(A) , No pain 15:53:58 89 7 29.8 133/116(127) NSR 0 (11) 10(A) , No pain 15:58:57 90 5 99 19.4 Measuring NSR 0 (11) 8(A) , No pain 16:00:21 89 5 99 43.3 Time NSR 0 (11) 8(A) Exceeded , No pain 16:01:53 90 4 99 43.3 130/106(117) NSR 0 (11) 8(A) , No pain 16:06:07 91 5 99 29.8 138/122(132) NSR 0 (11) 8(A) , No pain 16:10:23 90 6 98 51.5 127/117(125) NSR 0 (11) 8(A) , No pain 16:15:22 91 5 98 26.8 Measuring NSR 0 (11) 8(A) , No pain 16:16:46 90 5 98 22.4 Time NSR 0 (11) 8(A) Exceeded , No pain 16:20:02 92 5 98 13.4 Time NSR 0 (11) 8(A) Exceeded , No pain 16:22:09 90 7 98 20.9 116/102(108) NSR 0 (11) 8(A) , No pain 16:27:09 90 6 99 13.4 Measuring NSR 0 (11) 8(A) , No pain 16:27:19 90 6 98 11.2 104/90(96) NSR 0 (11) 8(A) , No pain 16:31:23 92 6 99 8.2 94/80(88) NSR 0 (11) 8(A) , No pain 16:33:38 90 6 100 11.2 87/70(81) NSR 0 (11) 8(A) , No pain 16:37:33 94 6 50 102/86(95) NSR 0 (11) 8(A) , No pain 16:41:35 92 6 99 34.3 100/86(97) NSR 0 (11) 8(A) , No pain 16:45:32 92 6 17.9 115/101(113) NSR 0 (11) 8(A) , No pain 16:49:38 92 6 98 44.8 118/90(116) NSR 0 (11) 8(A) , No pain 16:54:37 96 5 99 35.8 Measuring NSR 0 (11) 8(A) , No pain 16:54:58 92 6 98 43.3 129/75(111) NSR 0 (11) 8(A) , No pain 16:59:05 89 5 48.5 135/121(131) NSR 0 (11) 8(A) , No pain 17:04:05 95 6 97 44.8 Measuring NSR 0 (11) 8(A) , No pain 17:05:29 94 5 96 45.5 Time NSR 0 (11) 8(A) Exceeded , No pain 17:09:44 95 5 97 53.7 114/101(108) NSR 0 (11) 8(A) , No pain Medications Time Medication Route Dose Verified Delivered Reason Notes Effec tiveness by by 15:53:46 Versed I.V. 1 mg Daniel Gonzales for Joey Mojica RN sedation 15:54:00 Fentanyl I.V. 50 Daniel Gonzales mcg Joey Mojica RN, MD 16:04:25 Fentanyl I.V. 50 Daniel Gonzales for mcg Joey Mojica RN sedation 16:04:33 Versed I.V. 1 mg Daniel Gonzales for Joey Mojica RN sedation 16:08:27 Heparin Bolus I.V. 5000 Daniel Ramirezody used for units Joey Mojica RN procedure 16:24:15 Lidocaine 1% added 20ml Daniel Sanchez to vial Joey morrow MD, MD 16:24:28 Heparin Flush added 2 Daniel Sanchez Bag to bags Joey Cook (1000units/500ml field MD FIERRO NS) 16:56:47 Fentanyl I.V. 50 Daniel Ramirezody [place] [facility] [place]jica RN physician 17:01:22 Fentanyl I.V. 50 Daniel Ramirezody Per [facility] Joey Mojica RN physician Procedure Log Time Note 14:57:31 Patient Height : 71 inches 14:57:35 Patient Weight : 234 lbs 14:58:08 Use device set IR Diagnostic 14:58:54 Micropuncture VSI 4FR kit opened to sterile field. 14:58:56 SHEATH 5FR [place] (GIL342) opened to sterile field. 14:58:57 BENTSON 145cm wire ([id number]) opened to sterile field. 14:58:58 Tegaderm 4 x 4 (1626W) opened to sterile field. 14:58:59 Sterile Angiographic Pack opened to sterile field. 14:59:01 Bag Decanter (2002S) opened to sterile field. 14:59:06 - 15:31:36 Time tracking: Regular hours (M-F 7:00 - 5:00) 15:31:45 Plan of Care:Hemodynamics will remain stable., Cardiac rhythm will remain stable., Comfort level will be maintained., Respiratory function will remain adequate., Patient/ family verbilizes understanding of procedure., Procedure tolerated without complication., Recovers from procedure without complications.. 15:31:51 Patient received from Med II to IR Alert and oriented. Tansferred to table in Supine position. 15:31:56 Signed procedure consent form obtained from patient. 15:32:06 H&P Date Dictated: 07/31/2020 Within 30 days and on chart.. 15:32:08 Pre-procedure instructions explained to patient. 15:32:08 Pre-op teaching completed and patient verbalized understanding. 15:32:11 Family in waiting room. 15:32:14 Patient NPO since Midnight. 15:32:24 Patient allergic to No known allergies 15:32:44 Is the patient allergic to Iodine/contrast media? No. 15:32:47 Is patient on blood thinner?No 15:33:19 Patient diabetic? Yes. 15:33:22 If diabetic: On Metformin? No 15:33:25 - 15:33:26 ----Pre-sedation anethsthesia assessment.---- 15:33:45 Previous problem with sedation/anesthesia? No ? 15:33:48 Snore? Yes 15:33:51 Sleep apnea? No 15:33:55 Deviated septum? No 15:33:58 Opens mouth fully? Yes 15:33:59 Sticks out tongue? Yes 15:34:06 Airway obstruction? No ? 15:34:27 Dentures? Yes secure 15:34:46 Pre procedure: left dorsailis pedis pulse None 15:34:56 Left groin area was prepped with chlora-prep and draped in sterile fashion 15:34:59 Alarms reviewed by Dirk Eason 15:35:02 - 15:35:11 Baseline sample Acquired. 15:35:29 ECG and BP/O2 sat monitors applied to patient. 15:35:30 Vital chart was started 15:35:31 Baseline sample Acquired. 15:35:35 Full Disclosure recording started 15:35:37 - 15:51:40 Physician arrived 15:51:41 --------ALL STOP TIME OUT------ 15:51:43 Final Timeout: patient, procedure, and site verified with staff and physician. All members of the team are in agreement. 15:51:53 Left groin site verified by team. 15:52:21 Fire Safety Assessment: A--An alcohol-based skin anteseptic being used preoperatively., C--Open oxygen or nitrous oxide is being used., E--There are other possible contributors. 15:52:36 Physical assessment completed. ASA score P 2 - A patient with mild systemic disease as per Daniel Cook MD. 15:52:53 5) <15 or on dialysis Very severe, or end stage kidney failure. 15:52:59 Maximum allowable contrast dose (3.7 X eGFR X 0.75)13.75 ml. 15:53:16 Sedation plan: IV Moderate Sedation Medication:Versed 15:53:46 Versed 1 mg I.V. was administered by Janet Mojica RN; for sedation; Verbal order read back and verified. 15:54:00 Fentanyl 50 mcg I.V. was administered by Janet Mojica RN; ; Verbal order read back and verified. 15:54:02 Procedure started. 15:54:26 Local anesthetic to left femerol artery with Lidocaine 1% by Daniel Cook MD.INITIAL ACCESS ONLY 15:57:30 ROADRUNNER .035 260 glide wire ([id number]) opened to sterile field. 15:58:09 Trailblazer 0.035 135cm catheter ([id number]) opened to sterile field. 16:01:22 AMPLATZ Super Stiff 75cm wire ([id number]) opened to sterile field. 16:04:25 Fentanyl 50 mcg I.V. was administered by Janet Mojica RN; for sedation ; Verbal order read back and verified. 16:04:33 Versed 1 mg I.V. was administered by Janet Mojica RN; for sedation; Verbal order read back and verified. 16:08:27 Heparin Bolus 5000 units I.V. was administered by Janet Mojica RN; use d for procedure; Verbal order read back and verified. 16:24:15 Lidocaine 1% 20ml vial added to field was administered by Daniel hernandez MD; ; Verbal order read back and verified. 16:24:28 Heparin Flush Bag (1000units/500ml NS) 2 bags added to field was administered by Daniel Cook MD; ; Verbal order read back and verified. 16:24:46 CXI SUPPORT .018 150CM ANG catheter (G77305) opened to sterile field. 16:24:48 CHOICE PT Extra Support J 300cm guide wire ([id number]) opened to steril e field. 16:31:30 COPILOT Valve Control (8244515) opened to sterile field. 16:36:46 Inflate balloon Inflation number: 1 A NANOCROSS ELITE 2.5MM-2 MM X 210 X 150 ([id number]) was prepped and advanced across the Undefined1 , then inflated . 16:50:38 INFLATOR BasixTOUCH (IF8286) opened to sterile field. 16:50:43 CHOICE PT Extra Support J 300cm guide wire ([id number]) opened to steril e field. 16:56:47 Fentanyl 50 mcg I.V. was administered by Janet Mojica RN; Per physician; Verbal order read back and verified. 17:00:19 EXOSEAL 5Fr (EX500) opened to sterile field. 17:01:22 Fentanyl 50 mcg I.V. was administered by Janet Mojica RN; Per physician; Verbal order read back and verified. 17:04:38 Procedure ended.(Physican Out) 17:05:54 Fluoroscopy time 18.30 minutes. 17:05:59 Fluoroscopy dose: 148 mGy 17:05:59 Flurop Dose total: 148 17:06:03 Contrast amount:Isovue 300 40ml. 17:06:06 Procedure and supply charges have been captured, reviewed, submitted an d are correct. 17:11:44 Report given to Travel Desiya II. 17:12:12 Vital chart was stopped Intervention Summary Intervention Notes Time ActionType Lesion and Equipment Used Action# Pressure Duration Attributes 16:36:46 Inflate Undefined1 NANOCROSS ELITE 1 0 00:00 balloon 2.5MM-2 MM X 210 X 150 ([id number]) Device Usage Item Name Manufacture Quantity Catalog Number Hospital Part Current Minimal Lot# / Charge Number Stock Stock Serial# Code Micropuncture VSI VASCULAR 1 7266V 454305 439883 5 VSI 4FR kit SOLUTIONS SHEATH 5FR Terumo 1 [id number] 063207 387453 224270 5 [place] (RLE286) BENTSON 145cm Cook Medical 1 R71571 151914 039209 5 wire ([id number]) Tegaderm 4 x 4 3M 1 1626W 509085 851748 371735 5 (1626W) Sterile Cardinal 1 [id number] 520376 576260 5 Angiographic Health Pack Bag Decanter Microtek 1 2001S 123973 94519 298856 5 (2001S) Medical Inc. ROADRUNNER .035 Cook Medical 1 Y34772 329611 284839 180501 5 260 glide wire (C41520) Trailblazer Medtronic 1 ASC-035-135 844126 03001 572359 5 0.035 135cm catheter ([id number]) AMPLATZ Super [place] 1 [id number] 547511 546543 923141 5 Stiff 75cm wire Scientific ([id number]) CXI SUPPORT .018 Cook Medical 1 D34273 231977 394169 592246 5 150CM ANG catheter (R77062) CHOICE PT Extra [place] 1 [id number] 748881 083102 290439 5 Support J 300cm Scientific guide wire ([id number]) COPILOT Valve Ruano 1 [id number] 048352 306569 788754 5 Control Vascular (6954983) NANOCROSS ELITE Medtronic 1 [id number] 718611 556283 1 2.5MM-2 MM X 210 X 150 ([id number]) INFLATOR Merit 1 KE1552 587662 736244 674732 5 Anchor Sem[employer] Medical (PD8776) EXOSEAL 5Fr Cardinal 1 EX500 147652 466350 134044 10 (EX500) Health Signature Audit [place] Stage Time Signature Unsigned Intra-Procedure 07/31/2020 Letitia Boykin 5:12:08 PM RT(R) [place] [id number] [place] [address]
[2020-07-30 11:50] LABS: BASOPHILS 0.6 % (0-2); EOSINOPHILS 5.2 % (0-7); HEMATOCRIT 41.8 % (42.0-54.0); HEMOGLOBIN 13.2 g/dL (13.5-17.5); LYMPHOCYTES 12.6 % (15-50); MCHC 31.6 g/dL (31.0-37.0); MCV 91.8 fL (80.0-100.0); MEAN PLATELET VOLUME 7.4 fL (7.4-10.4); MONOCYTES 10.7 % (2-11); NEUTROPHILS 70.9 % (40-80); RBC 4.55 10x6/uL (4.20-6.10); RDW 15.8 % (11.5-14.5); WBC 13.8 10x3/uL (4.8-10.8)
[2020-07-30 11:54] LABS: CALCIUM 10.1 mg/dL (8.5-10.1); CARBON DIOXIDE 26.4 mmol/L (21.0-32.0); CREATININE - SERUM 13.1 mg/dL (0.6-1.3); PLATELET COUNT 478 10x3/uL (130-400); POTASSIUM - SERUM 5.4 mmol/L (3.5-5.1)
[2020-07-30] MEDS ORDERED: NEURONTIN600 MG PO (17:37)
[2020-07-30 17:46] VITALS: BP 105/68; BMI 32.8
--- NOTE | 2020-07-30 17:59 | NUR ---
RECEIVED PATIENT FROM ER VIA STRETCHER. PATIENT IS AWAKE ALERT AND ORIENTED. PLAN OF CARE REVIEWED AND ASSESSMENT HAS BEEN COMPLETED. PATIENT HAS AT BEDSIDE WHO ASSISTS HIM WITH QUESTIONS HE MAY NOT ANSWER. PATIENT DOES COMPLAIN OF PAIN AT THIS TIME IN HIS HAND. NURSE NOTES MULTIPLE WOUNDS TO BOTH HANDS.
--- NOTE | 2020-07-30 18:20 | NUR ---
DR BEE AND DR ABEL BOTH SEE PATIENT THIS AFTERNOON
[2020-07-31] VITALS (8 sets, daily range): BP systolic 106–141; BP diastolic 54–74; BMI 32.7
--- NOTE | 2020-07-31 03:16 | NUR ---
I have reviewed this patient and I concur with the Shift Assessment completed by the Licensed Practical Nurse today this shift.
[2020-07-31 07:00] LABS: BASOPHILS 2.3 % (0-2); EOSINOPHILS 7.2 % (0-7); HEMATOCRIT 40.3 % (42.0-54.0); HEMOGLOBIN 12.8 g/dL (13.5-17.5); LYMPHOCYTES 11.2 % (15-50); MCH 29.7 pg (26.0-34.0); MCHC 31.8 g/dL (31.0-37.0); MCV 93.3 fL (80.0-100.0); MEAN PLATELET VOLUME 7.8 fL (7.4-10.4); MONOCYTES 15.9 % (2-11); NEUTROPHILS 63.4 % (40-80); PLATELET COUNT 478 10x3/uL (130-400); RBC 4.32 10x6/uL (4.20-6.10); RDW 15.5 % (11.5-14.5)
[2020-07-31 07:04] LABS: WBC 9.5 10x3/uL (4.8-10.8)
[2020-07-31 07:14] LABS: INR 1.07 (0.85-1.17); PROTIME 12.9 SECONDS (11.6-15.0)
--- NOTE | 2020-07-31 07:22 | NUR ---
BEDSIDE REPORT RECEIVED. PATIENT RESTING WITH EYES CLOSED. RESP EVEN AND UNLAOBRED ON ROOM AIR. R WRIST WITH NS INFUSING AT 10.
[2020-07-31 07:46] LABS: ALBUMIN 3.1 g/dL (3.4-5.0); ANION GAP 16.7 mmol/L (8-16); BILIRUBIN - TOTAL 0.51 mg/dL (0.2-1.3); CALCIUM 9.8 mg/dL (8.5-10.1); CARBON DIOXIDE 26.7 mmol/L (21.0-32.0); CREATININE - SERUM 14.7 mg/dL (0.6-1.3); POTASSIUM - SERUM 5.4 mmol/L (3.5-5.1); PROTEIN - SERUM 7.9 g/dL (6.4-8.2)
--- NOTE | 2020-07-31 08:00 | NUR ---
PATIENT AWAKE AND ALERT, ABLE TO MAKE NEEDS KNOWN. NO CURRENT DISTRESS NOTED. SPOUSE AT BEDSIDE. RESP EVEN AND UNLABORED. O2 SAT 99 ON ROOM AIR. PATIENT IS NPO FOR A PROCEDURE. HEART SOUNDS REGULAR RATE AND RYTHYM. IV TO RIGHT WRIST. NS AT 10 LEFT AV NOT WORKING, R CHEST HEMISPLIT R FOOT HALF AMPUTATED, L BKA. BOWEL SOUNDS ACTIVE X 4 QUADS.
--- NOTE | 2020-07-31 17:00 | NUR ---
I have reviewed this patient and I concur with the Shift Assessment completed by the Licensed Practical Nurse today this shift.
--- NOTE | 2020-07-31 19:59 | NUR ---
REPORT RECIEVED FROM DAY NURSE. PT CURRENTLY IN HEMODIALYSIS. CALL WAS RECIEVED FROM ISABEL THAT PT NEEDED PAIN MEDICATION NOW. PAIN PILL DELIVERED TO DIALYSIS AT THIS TIME.
--- NOTE | 2020-07-31 20:25 | NUR ---
PT REMAINS IN DIALYSIS.
--- NOTE | 2020-07-31 20:39 | NUR ---
RETURN FROM DIALYSIS. CURRENTLY EATING PIZZA WITH A FAMILY MEMBER.
--- NOTE | 2020-07-31 21:00 | NUR ---
REPORT FROM DIALYSIS. PT WENT FOR 1 HR AND 15 MINUTES AND WILL GO BACK TO DIALYSIS IN THE AM. HE RECIEVED ALBUMIN 150ML. LABILE BP, UP AND DOWN THROUGHOUT THE PROCEDURE.
--- NOTE | 2020-08-01 00:25 | NUR ---
PT'S IV TO RIGHT WRIST NO LONGER PATENT. PT WITH GREAT PAIN TO RIGHT HAND AND UNABLE TO ESTABLISH A NEW PIV. CALL TO EDITH GIRALDO RN BUTTONER AND REQUESTED TO USE BLUE PORT OF HEMOSPLIT AND KEEP A 5ML/HR KVO GOING TO ELIMINATE NURSES HAVING TO HEPARINIZE PORT. ORDER RECIEVED. NS @ 5ML/HR UP AND INFUSING TO RIGHT CHEST WALL HEMOSPLIT BLUE PORT.
[2020-08-01 01:58] VITALS: BP 108/52
[2020-08-01 06:36] LABS: BASOPHILS 1.1 % (0-2); HEMATOCRIT 33.6 % (42.0-54.0); HEMOGLOBIN 10.5 g/dL (13.5-17.5); LYMPHOCYTES 8.6 % (15-50); MCH 29.1 pg (26.0-34.0); MCHC 31.3 g/dL (31.0-37.0); MCV 92.9 fL (80.0-100.0); MONOCYTES 12.4 % (2-11); NEUTROPHILS 71.9 % (40-80); PLATELET COUNT 427 10x3/uL (130-400); RBC 3.62 10x6/uL (4.20-6.10); RDW 15.6 % (11.5-14.5)
[2020-08-01 06:39] LABS: WBC 12.9 10x3/uL (4.8-10.8)
[2020-08-01 07:21] LABS: ALBUMIN 2.9 g/dL (3.4-5.0); BILIRUBIN - TOTAL 0.32 mg/dL (0.2-1.3); CALCIUM 9.4 mg/dL (8.5-10.1); CARBON DIOXIDE 25.4 mmol/L (21.0-32.0); CREATININE - SERUM 14.3 mg/dL (0.6-1.3); POTASSIUM - SERUM 5.4 mmol/L (3.5-5.1); PROTEIN - SERUM 6.3 g/dL (6.4-8.2)
[2020-08-01 08:06] VITALS: BP 110/61
[2020-08-01 12:50] VITALS: BP 141/69
--- NOTE | 2020-08-01 14:06 | NUR ---
0700 BEDSIDE SHIFT REPORT RECEIVED ALWKE ALERT IN BED NS INFUSING TO 10ML/HR TO BLUE PORT HEMESPLIT
--- NOTE | 2020-08-01 14:08 | NUR ---
1100 FAMILY MEMBERS AT BEDSIDE PROVIDING EMOTIONAL SUPPORT
--- NOTE | 2020-08-01 14:09 | NUR ---
1400 TRANSPORTED TO DIALYSIS
--- NOTE | 2020-08-01 20:00 | NUR ---
INITIAL ROUNDS AND ASSESSMENT COMPLETED AT 1945. PT ALERT/ORIENTED AND RESTING IN BED. AT BEDSIDE. NONLABORED RESPIRATIONS. IVF NS @ 20ML/HR INFUSING TO RIGHT SUBCLAVIAN HEMOSPLIT BLUE PORT. DRESSING C/D/I. CALL LIGHT IN REACH. DISCUSSED BEDTIME MEDS TO BE GIVEN.
[2020-08-01 20:42] VITALS: BP 130/97
--- NOTE | 2020-08-01 21:32 | NUR ---
BEDTIME MEDS GIVEN. SCHEDULED DOSE OF TORADOL. FSBS 155. PT DECLINED SS INSULIN AND DID NOT WANT THE INCREASED DOSE OF LANTUS, NOW AT 50UNITS. HE AGREED TO TAKE 45 UNITS. PT IS ITCHING ALL OVER AND BENADDRYL WILL BE GIVEN.
[2020-08-02 01:13] VITALS: BP 130/68
--- NOTE | 2020-08-02 01:49 | NUR ---
PAGED VIA ANSWERING SERVICE TO EDITH MAHER. PT C/O ITCHING AND WANTS BENADRYL. AWAITING CALL BACK.
--- NOTE | 2020-08-02 04:10 | NUR ---
REPAGED PRENATAL NURSE, CALL BACK THIS TIME AND REPORTED THAT PATIENT IS HAVING ALL OVER BODY ITCHING AND REQUESTING BENADRYL. NEW ORDER RECIEVED AND BENADRYL 25MG SIVP ADMINISTERED.
[2020-08-02 05:51] LABS: CREATININE - SERUM 11.1 mg/dL (0.6-1.3); MAGNESIUM - SERUM 2.6 mg/dL (1.8-2.4); VANCOMYCIN - RANDOM 24.3 ug/mL (10.0-20.0)
[2020-08-02 05:53] LABS: POTASSIUM - SERUM 4.4 mmol/L (3.5-5.1)
[2020-08-02 06:12] LABS: ANION GAP 13.3 mmol/L (8-16); CARBON DIOXIDE 28.1 mmol/L (21.0-32.0)
[2020-08-02 08:23] VITALS: BP 145/83
[2020-08-02 15:56] VITALS: BP 108/82
[2020-08-03 01:21] VITALS: BP 144/45
[2020-08-03 05:28] VITALS: BP 122/48
--- NOTE | 2020-08-03 08:07 | NUR ---
PT AMBULATING IN ROOM FROM RESTROOM, STEADY GAIT NOTED. PT RR EVEN NON LABORED, MEDS GIVEN INCLUDING PRN MEDS D/T LOOSE STOOLS AND HEART BURN. PT AAOX4, PLEASANT AND ANSWERS QUESTIONS APPROP. AT BEDSIDE. NO NEEDS VOICED AT THIS TIME. CLWR.
[2020-08-03 09:00] VITALS: BP 88/68
[2020-08-03 11:14] LABS: RBC 2.33 10x6/uL (4.20-6.10); WBC 29.6 10x3/uL (4.8-10.8)
[2020-08-03 11:20] LABS: HEMATOCRIT 21.8 % (42.0-54.0); HEMOGLOBIN 6.6 g/dL (13.5-17.5); MCH 28.5 pg (26.0-34.0); MCHC 30.5 g/dL (31.0-37.0); MCV 93.4 fL (80.0-100.0); MEAN PLATELET VOLUME 7.2 fL (7.4-10.4); PLATELET COUNT 332 10x3/uL (130-400); RDW 15.8 % (11.5-14.5)
[2020-08-03 11:29] LABS: ANION GAP 20.7 mmol/L (8-16); CALCIUM 8.9 mg/dL (8.5-10.1); CARBON DIOXIDE 21.7 mmol/L (21.0-32.0); CREATININE - SERUM 13.7 mg/dL (0.6-1.3); VANCOMYCIN - RANDOM 20.4 ug/mL (10.0-20.0)
[2020-08-03 11:31] LABS: POTASSIUM - SERUM 6.4 mmol/L (3.5-5.1)
--- NOTE | 2020-08-03 11:31 | NUR ---
NOTIFIED CELE REGARDING HEMOGLOBIN LEVEL - ORDERS RECEIVED.
--- NOTE | 2020-08-03 11:50 | NUR ---
CONSENTS SIGNED AT THIS TIME BY WITH PT APPROVAL. PT RESTING , RR EVEN NON LABORED. NO NEEDS VOICED. CLWR.
[2020-08-03 12:00] VITALS: BP 108/67
[2020-08-03 13:02] VITALS: Ht 180.3 cm; Wt 118.7 kg
--- NOTE | 2020-08-03 13:41 | NUR ---
Nutrition Follow-up: Pt sleeping soundly this AM. reports that pt's appetite/PO intake have been good but did not eat this AM 2/2 diarrhea. Likes Nepro. HD MWF. Noted plans for a R UE arteriogram tomorrow. Diet: Renal ADA; NPO p MN Wt: 235# (07/31) Labs noted: Na 133, K+ 6.4, Glu 155 Meds noted: Imodium, Tums, Miralax, Lantus, Humalog, Protonix, Renagel -Encourage PO intake and honor food preferences within diet restrictions. -Nepro sent with lunch today. -Need new wt. -RD will follow up within 3-4 days.
[2020-08-03 14:24] LABS: EOSINOPHILS 12 % (0-7); HYPOCHROMASIA OCC; LYMPHOCYTES 8 % (15-50); MONOCYTES 14 % (2-11); NEUTROPHILS 66 % (40-80); PLATELET ESTIMATE NORMAL
--- NOTE | 2020-08-03 16:33 | NUR ---
CALLED DIALYSIS REGARDING TIME FRAME FOR PT TO BE DIALYISED D/T POTASSIUM AND HEMOGLOBIN LEVEL. DIALYSIS NURSE STATES SHE WILL CALL WHEN READY.
--- NOTE | 2020-08-03 19:30 | NUR ---
PT IN DIALYSIS AT THIS TIME.
--- NOTE | 2020-08-03 21:00 | NUR ---
PT IN BED, AAO X 4, RESP EVEN AND UNLABORED, NO DISTRESS NOTED, CL IN REACH, SRU P X 2.
[2020-08-04] VITALS (10 sets, daily range): BP systolic 92–140; BP diastolic 28–89
--- NOTE | 2020-08-04 03:54 | NUR ---
I have reviewed this patient and I concur with the Shift Assessment completed by the Licensed Practical Nurse today this shift.
[2020-08-04 05:58] LABS: APTT 37.9 SECONDS (22.8-39.4); INR 1.17 (0.85-1.17); PROTIME 13.8 SECONDS (11.6-15.0)
[2020-08-04 06:25] LABS: BASOPHILS 0.4 % (0-2); EOSINOPHILS 1.9 % (0-7); HEMATOCRIT 26.5 % (42.0-54.0); HEMOGLOBIN 8.5 g/dL (13.5-17.5); MCH 29.1 pg (26.0-34.0); MCHC 31.9 g/dL (31.0-37.0); MCV 91.2 fL (80.0-100.0); MEAN PLATELET VOLUME 7.9 fL (7.4-10.4); MONOCYTES 10.1 % (2-11); NEUTROPHILS 82.6 % (40-80); PLATELET COUNT 303 10x3/uL (130-400); RBC 2.91 10x6/uL (4.20-6.10); RDW 15.8 % (11.5-14.5); WBC 40.6 10x3/uL (4.8-10.8)
[2020-08-04 06:30] LABS: ANION GAP 18.5 mmol/L (8-16); CARBON DIOXIDE 25.1 mmol/L (21.0-32.0); VANCOMYCIN - RANDOM 18.5 ug/mL (10.0-20.0)
[2020-08-04 06:31] LABS: CREATININE - SERUM 9.4 mg/dL (0.6-1.3); POTASSIUM - SERUM 4.6 mmol/L (3.5-5.1)
--- NOTE | 2020-08-04 08:44 | NUR ---
SPOKE WITH RIGOBERTO WILEY REGARDING NO IV ACCESS AND PERMISSION TO USE BLUE PORT FOR SEDATION DURING PROCEDURE. V/O RECEIVED TO USE BLUE PORT DURING PROCEDURE. AWAITING FURTHER ORDERS FOR IV ACCESS.
--- NOTE | 2020-08-04 09:54 | NUR ---
DUE TO PAD- BLOOD PRESSURE DIFFICULTTO OBTAIN DURING ARTERIOGRAM
--- NOTE | 2020-08-04 10:35 | NUR ---
PT ARRIVED FROM IR AT THIS TIME. UNABLE TO PERFORM TEST. PUNCTURE SITES TO BILAT GROIN NOTED, DRESSING C/D/I, VSS. PAIN REPORTED TO HANDS. PRN PAIN MEDICATION GIVEN. PT RR EVEN NON LABORED. AT BEDSIDE. WARM BLANKET GIVEN AT THIS TIME. NO FURTHER NEEDS VOICED. CLWR.
--- NOTE | 2020-08-04 11:37 | NUR ---
ONE TIME ORDER FOR PAIN MEDICATION GIVEN AT THIS TIME D/T UNRELEAVED PAIN TO BILAT HANDS.
--- NOTE | 2020-08-04 13:14 | NUR ---
SPOKE TO ARIAS IN PHARMACY REGARDING NEW MED ORDERS PER DR WOOTEN.
--- NOTE | 2020-08-04 17:00 | NUR ---
PER XR RESULTS AND DR BEE RIGHT IJ CAN BE USED AT THIS TIME. SCHEDULED MEDS GIVEN. PT AWAKE AND SITTING UP IN BED WATCHING TV. SLIDING SCALE HELD D/T PT HAS LOW APPETITE AND DENIES WANTING INSULIN. LOVENOX HELD D/T AWAITING PLAN FOR SURGICAL INTERVENTION WITH IR AND NEPHRO. NO FURTHER NEEDS VOICED. CLWR.
--- NOTE | 2020-08-04 19:30 | NUR ---
PT IN BED, AAO X 2, RESP EVEN AND UNLABORED, NO DISTRESS NOTED, CL IN REACH, SR UP X 2, AT BEDSIDE.
[2020-08-05] VITALS (28 sets, daily range): BP systolic 95–162; BP diastolic 34–89
--- NOTE | 2020-08-05 04:58 | NUR ---
I have reviewed this patient and I concur with the Shift Assessment completed by the Licensed Practical Nurse today this shift.
[2020-08-05 07:05] LABS: ANION GAP 19.2 mmol/L (8-16); CALCIUM 8.9 mg/dL (8.5-10.1); CARBON DIOXIDE 23.9 mmol/L (21.0-32.0)
[2020-08-05 07:34] LABS: HEMATOCRIT 24.6 % (42.0-54.0); HEMOGLOBIN 7.6 g/dL (13.5-17.5); MCH 28.9 pg (26.0-34.0); MCHC 31.1 g/dL (31.0-37.0); MCV 92.9 fL (80.0-100.0); PLATELET COUNT 316 10x3/uL (130-400); RBC 2.65 10x6/uL (4.20-6.10); RDW 17.3 % (11.5-14.5); WBC 40.7 10x3/uL (4.8-10.8)
[2020-08-05 07:40] LABS: CREATININE - SERUM 12.2 mg/dL (0.6-1.3)
[2020-08-05 07:42] LABS: POTASSIUM - SERUM 6.1 mmol/L (3.5-5.1)
--- NOTE | 2020-08-05 07:46 | NUR ---
NOTIFIED EDITH REGARDING CRITICAL LAB VALUE.
--- NOTE | 2020-08-05 08:40 | NUR ---
PT LYING ON BACK, RR EVEN NON LABORED. O2 IN PLACE. PT AWAKENS WITH STIMULI, APPEARS DROWSY. ABD SLIGHTLY DISTENDED. PT FAMILY AT BEDSIDE. PT WILL HAVE DIALYSIS TODAY, CALLED DIALYSIS FOR TIME D/T ELEVATED POTASSIUM.
--- NOTE | 2020-08-05 08:57 | NUR ---
PT LYING IN BED WITH EYES CLOSED, AWAKENS TO NURSE ENTERING ROOM. ANSWERS QUESITONS APPROP. RR EVEN NON LABORED WITH O2 IN PLACE VIA NC. PT GIVEN AM MEDS, NO FURTHER NEEDS VOICED AT THIS TIME. CLWR.
--- NOTE | 2020-08-05 11:05 | NUR ---
PT GIVEN AM MEDS, CLARIFIED DIET ORDER WITH DR DAVIS. SPOKE WITH PT SPOUSE REGARDING PLAN FOR DIALSIS TODAY. NURSE CALLED DIALYSIS FOR TIME D/T ELEVATED POTASSIUM LEVEL. PT IS HAVING SOME CONFUSION THIS AM, APPEARS DROWSY, AWAKENS EASILY. FAMILY AT BEDSIDE. CLWR.
--- NOTE | 2020-08-05 13:00 | NUR ---
AROUND THE TIME OF 1230 NURSE WENT TO TAKE LUNCH TRAY AND CHECK BLOOD SUGAR, UPON ARRIVAL TO DIALYSIS PT MENTAL STATUS APPEARED WORSE, PT WOULD WAKE UP AND QUICKLY FALL BACK ASLEEP. PT STATES "IM IN THE STORE" WHEN ASKED. CBG WNL. DIALYSIS NURSE CALLED DR WOOTEN , RAPID RESPONSE CALLED. NARCAN WAS GIVEN DURING RAPID REPSONSE. PT AWOKE AND WOULD ANSWER QUESTIONS APPROP. DR GUTIERREZ AT BEDSIDE. NO FURTHER ORDERS AT THIS TIME. PT RECEIVING DIALYSIS. AROUND THE TIME OF 1300 NURSE ARRIVED DOWN TO DIALYSIS TO ASSIST WITH KEIRY CARE D/T PT HAVING BOWEL MOVEMENT, RAPID RESPONSE CALLED UPON NURSE ENTERING DIALYSIS. PT APPEARED TO BE WORSE. BREATHING IRREGULAR, SNORING NOTED. TOD WATERMAN CALLED. ER / ICU / AND RT ARRIVED TO DIALYSIS UNIT. PT LATER TRANSFERRED TO BED 10 IN ICU.
[2020-08-05 13:32] LABS: LYMPHOCYTES 4 % (15-50); MONOCYTES 6 % (2-11); NEUTROPHILS 90 % (40-80); PLATELET ESTIMATE NORMAL
[2020-08-05 13:51] LABS: BASOPHILS 0.5 % (0-2); EOSINOPHILS 1.7 % (0-7); HEMATOCRIT 23.3 % (42.0-54.0); LYMPHOCYTES 15.5 % (15-50); MCHC 30.9 g/dL (31.0-37.0); MCV 93.8 fL (80.0-100.0); MEAN PLATELET VOLUME 7.8 fL (7.4-10.4); MONOCYTES 19.8 % (2-11); NEUTROPHILS 62.5 % (40-80); PLATELET COUNT 323 10x3/uL (130-400); RBC 2.49 10x6/uL (4.20-6.10); RDW 17.2 % (11.5-14.5)
[2020-08-05 14:01] LABS: WBC 28.2 10x3/uL (4.8-10.8)
[2020-08-05 14:02] LABS: HEMOGLOBIN 7.2 g/dL (13.5-17.5)
[2020-08-05 14:20] LABS: TROPONIN-I 0.16 ng/mL (0.000-0.060)
[2020-08-05 15:47] LABS: ANION GAP 23.2 mmol/L (8-16); CALCIUM 9.8 mg/dL (8.5-10.1); CARBON DIOXIDE 18.5 mmol/L (21.0-32.0); CREATININE - SERUM 9.2 mg/dL (0.6-1.3)
[2020-08-05 15:49] LABS: POTASSIUM - SERUM 3.7 mmol/L (3.5-5.1)
[2020-08-06] VITALS (56 sets, daily range): BP systolic 66–145; BP diastolic 41–92
[2020-08-06 06:47] LABS: EOSINOPHILS 1.1 % (0-7)
[2020-08-06 06:49] LABS: ANION GAP 20.8 mmol/L (8-16); BASOPHILS 0.6 % (0-2); CALCIUM 9.1 mg/dL (8.5-10.1); CARBON DIOXIDE 22.2 mmol/L (21.0-32.0); CREATININE - SERUM 11.3 mg/dL (0.6-1.3); LYMPHOCYTES 4.3 % (15-50); MCH 29.2 pg (26.0-34.0); MCHC 32.1 g/dL (31.0-37.0); MONOCYTES 10.8 % (2-11); NEUTROPHILS 83.2 % (40-80); PLATELET COUNT 326 10x3/uL (130-400); RBC 2.42 10x6/uL (4.20-6.10); RDW 16.3 % (11.5-14.5)
[2020-08-06 06:50] LABS: WBC 37.9 10x3/uL (4.8-10.8)
[2020-08-06 06:52] LABS: HEMOGLOBIN 7.1 g/dL (13.5-17.5)
--- NOTE | 2020-08-06 07:00 | NUR ---
AWAKES EASILY TO VERBAL STIMULI. OBEYING COMMANDS. SKIN WARM AND DRY. ETT SECURE TO VENT. BILATERAL LUNG SOUNDS EQUAL. NO DISTRESS NOTED. ABD TENDER WHEN PALPATED. RIGHT IJ TRIPLE DOUBLE LUMEN INFUSING WITH DIPRIVAN AT 20 MEQ/KG/MMIN, LEVOPHED AT 4 MCG/MIN. NS AT KVO. HEAD OF BED ELEVATED 30 DEGREES. RIGHT SUBCLAVIAN MIREYA SPLIT DRESSING DRY AND INTACT AND HEPARIN LOCKED. RIGHT FEMEROL DONIS WITH GOOD WAVE FORM. DRESSING DRY AND INTACT. FINGER TIPS BLACK. MONITOR SR -ST.
--- NOTE | 2020-08-06 08:07 | EC ---
PATIENT:JUAN MCKENNA DATE OF SERVICE: 07/30/20 SEX: M MEDICAL RECORD: [id number] DATE OF : 74 LOCATION:[place] [address] AGE OF PATIENT: 49 ADMISSION DATE: 07/30/20 REFERRING PHYSICIAN: INTERPRETING PHYSICIAN: AGNES ABDALLA MD ECHOCARDIOGRAM REPORT ECHO CHARGES 4 ECHO COMPLETE Date: 08/05/20 CLINICAL DIAGNOSIS: CARDIAC ARREST ECHOCARDIOGRAPHIC MEASUREMENTS (adult normal given) AC root (d.<3.7cm) 3.5 cm LV Septum d (<1.2 cm> 1.2 cm Valve Excursion 2.3 cm LV Septum (systole) 1.3 cm Left Atria (s.<4.0cm> 4.2 cm LVPW d(<1.2cm) 1.1 cm RV (d.<2.3cm) 3.6 cm LVPW (sytole) 1.2 cm LV diastole(<5.6CM) 5.0 cm MV E-F(>70mm/sec) cm LV systole 3.6 cm LVOT Diameter 2.3 cm MV exc.(>10mm) cm Est.ejection fraction (50-75%) 55 % DOPPLER: LVIT cm/sec A 1.6 cm/sec E 1.0 cm/sec LA cm/sec RVSP 36 mmHg LVOT 1.25 cm/sec AOP1/2T m/s Asc. Ao 1.71 cm/sec RVOT 104 cm/sec RA cm/sec PA 116 cm/sec AV Gradient Peak 11 mmHg AV Mean 7 mmHg AV Area 3.3 cm MV Gradient Peak 7 mmHg MV Mean 3 mmHg MV Area cm COMMENTS: Hand Rug Braider: Tammy LOWE Traffic Police Officer: 3 Dr. Bailey TAPE# Pericardial Effusion N DATE OF SERVICE: Adequate 2D, color flow imaging, spectral Doppler, and M-Mode. FINDINGS: No LVH. LV internal dimensions are normal. Wall motion is normal. EF is greater than or equal to 55%. Aortic valve is tricuspid with good valve excursion. No evidence of stenosis by Doppler interrogation. Left atrium is mildly dilated at 4.2 cm. Mitral valve shows no prolapse. Trace MR. Right side is grossly normal. Mild TR. ECHOCARDIOGRAM REPORT [id number] JUAN MCKENNA TRANSINT:[id number] Voice Confirmation ID: [id number] DOCUMENT ID: [id number] AGNES ABDALLA MD at 0807 CC: [id number] DICTATION DATE: 08/05/201707 CHILDREN'S CHOIR DIRECTOR: 08/05/20 1825 ADM IN [facility] [address] [place] [id number]
--- NOTE | 2020-08-06 09:00 | NUR ---
FAMILY HERE UPDATE GIVEN.
--- NOTE | 2020-08-06 09:45 | NUR ---
DIPRIVAN TURNED. PENDING CPAP TRAILS. PATIENT AWAKE AND ALERT OBEYING COMMANDS. LIFT EXTREMITITES ON REQUEST RIGHT OR LEFT, NODES HEAD TO YES AND NO QUESTIONS.
--- NOTE | 2020-08-06 12:30 | NUR ---
CARDIOLOGY AND GI DOCTORS PAGED
--- NOTE | 2020-08-06 12:37 | OP ---
PATIENT NAME: JUAN MCKENNA MEDICAL RECORD: [id number] :74 LOCATION:D.[facility] D.2310 ADMISSION DATE:07/30/20 SURGEON: RICARDO BLUE MD DATE OF OPERATION: 08/05/2020 PREOPERATIVE DIAGNOSIS: 1. Post-cardiopulmonary arrest. 2. End-stage renal disease. 3. Hypotension. POSTOPERATIVE DIAGNOSIS: 1. Post-cardiopulmonary arrest. 2. End-stage renal disease. 3. Hypotension. PROCEDURES: Placement of a right groin arterial line for continuous hemodynamic monitoring. SURGEON: Ricardo Blue MD NETWORK/TELECOM ENGINEER: None. BLOOD LOSS: Minimal. ANESTHESIA: Local. COMPLICATIONS: None. I was asked by Dr. Baig to see this patient and to place a central line. It really would be dangerous to try to place a central line in his upper extremities due to the very tenuous nature of his peripheral vascular disease in the upper extremities. I chose placement of a right groin line. Due to occlusive arterial disease when placed it may actually show a lower blood pressure than his systemic blood pressure. The patient was seen in his ICU room. The right groin was sterilely prepped and draped. Under ultrasonographic guidance, I percutaneously accessed the right common femoral artery in a retrograde fashion. A guidewire passed easily. A small skin incision was accomplished. I then advanced a long Angiocath type catheter over the wire. Pulsatile blood came out through the end of the catheter. This was attached to Omni Flush transducer tubing. There was arterial waveform on the monitor. The arterial line was then sutured in place times 3. A sterile dressing was applied. TRANSINT:[id number] Voice Confirmation ID: [id number] DOCUMENT ID: [id number] RICARDO BLUE MD at 1237 CC: [id number] DICTATION DATE: 08/05/202210 RETAIL ACCOUNT EXECUTIVE: 08/06/20 0236 ADM IN [place] [id number] [place] [address]
--- NOTE | 2020-08-06 13:45 | NUR ---
[facility] CENTRAL LEAKING AROUND SITE, WILL NOT DRAW BLOOD, INFUSING WITHOUT DIFFICULTY. DR. WEINER NOTIFIED STRADDLE BUG OPERATOR FOR SURGERY
--- NOTE | 2020-08-06 14:56 | NUR ---
[facility] CENTRAL DRESSING DRY AND INTACT AFTER DR. BEE ADD SUTURES TO SITE. PRESSURE DRESSING APPLIED. 2ND UNIT OF BLOOD INFUSING. FAMILY AT BEDSIDE.
--- NOTE | 2020-08-06 17:31 | NUR ---
DONIS RIGHT FEMEROL REMOVED. PRESSURE HELD 15 MIN. NO BLEEDING OR BRUISING NOTED. DRESSING APPLIED. PATIENT TOLERATED WELL
[2020-08-07] VITALS (26 sets, daily range): BP systolic 98–220; BP diastolic 46–138
[2020-08-07 04:53] LABS: BASOPHILS 0.6 % (0-2); MCH 28.3 pg (26.0-34.0); MCHC 31.5 g/dL (31.0-37.0); MEAN PLATELET VOLUME 8.1 fL (7.4-10.4); MONOCYTES 12.9 % (2-11); NEUTROPHILS 79.5 % (40-80); PLATELET COUNT 363 10x3/uL (130-400)
[2020-08-07 04:56] LABS: HEMATOCRIT 36.9 % (42.0-54.0); HEMOGLOBIN 11.6 g/dL (13.5-17.5); RBC 4.09 10x6/uL (4.20-6.10)
[2020-08-07 05:33] LABS: ANION GAP 20.3 mmol/L (8-16); CALCIUM 9.1 mg/dL (8.5-10.1); CARBON DIOXIDE 23.5 mmol/L (21.0-32.0); CREATININE - SERUM 12.5 mg/dL (0.6-1.3); PHOSPHOROUS 6.1 mg/dL (2.5-4.9); POTASSIUM - SERUM 4.8 mmol/L (3.5-5.1)
--- NOTE | 2020-08-07 07:00 | NUR ---
COLONOSCOPY SET UP. DR. CADENA HERE, ANESTHIA, AND GI LAB. PATIENT AWAKE AND ALERT AND AGREEABLE TO PROCEDURE.
--- NOTE | 2020-08-07 07:45 | NUR ---
COLONOSCOPY COMPLETE. PATIENT AWAKES EASILY TO VERBAL STIMULI RESP DEEP AND REGULAR NO DISTRESS. VITAL SIGNS STABLE. ON ROOM AIR.
--- NOTE | 2020-08-07 08:29 | NUR ---
RESP. DEEP AND REGULAR. SLEEPING. NO DISTRESS
--- NOTE | 2020-08-07 12:31 | NUR ---
Nutrition follow-up: Diet order: Renal PO intake poor since extubation Labs reviewed Wt: 258# Will provide food choices with selective menus and honor food preferences within diet restrictions. Pt for possible surgery soon RDN will follow-up on pts progress toward nutrition goals in 3-5 days.
[2020-08-08] VITALS (21 sets, daily range): BP systolic 103–187; BP diastolic 55–122
--- NOTE | 2020-08-08 04:00 | NUR ---
PT IN TEARS AT THE BEGINING OF THE SHIFT, C/O OF FINGER PAIN. WRITHING IN BED. RECEIVED NEW ORDERS FOR PRN MEDICATION. PRIOR TO ADMINISTERING FIRST DOSE, PT WAS FALLING ASLEEP EASILY. PT HAD MULIPILE VISITORS IN AND OUT. MEDICATION HELD R/T TO SUDDEN CHANGE IN MOOD ETC.
--- NOTE | 2020-08-08 07:29 | NUR ---
RIGHT IJ CONTINUES TO OOZE DURING THE NIGHT, WHEN FLUSHING THE LUMENS ONE LEAKED DISTAL TO THE SUTURE SITE. DRESSING APPLIED. WILL CTM.
[2020-08-08 08:17] LABS: BASOPHILS 0.8 % (0-2); EOSINOPHILS 5.7 % (0-7); HEMATOCRIT 32.1 % (42.0-54.0); HEMOGLOBIN 10.3 g/dL (13.5-17.5); LYMPHOCYTES 7.5 % (15-50); MEAN PLATELET VOLUME 7.6 fL (7.4-10.4); MONOCYTES 13.6 % (2-11); NEUTROPHILS 72.4 % (40-80); PLATELET COUNT 422 10x3/uL (130-400); RBC 3.67 10x6/uL (4.20-6.10); RDW 15.8 % (11.5-14.5); WBC 25.5 10x3/uL (4.8-10.8)
[2020-08-08 08:19] LABS: MCV 87.5 fL (80.0-100.0)
[2020-08-08 08:26] LABS: ANION GAP 14.2 mmol/L (8-16); CALCIUM 9.1 mg/dL (8.5-10.1); CARBON DIOXIDE 27.2 mmol/L (21.0-32.0); CREATININE - SERUM 9.2 mg/dL (0.6-1.3); PHOSPHOROUS 4.6 mg/dL (2.5-4.9); POTASSIUM - SERUM 4.4 mmol/L (3.5-5.1); VANCOMYCIN - RANDOM 20.2 ug/mL (10.0-20.0)
--- NOTE | 2020-08-08 18:48 | NUR ---
TRANSFERRED SAFELY TO CVICU. UNABLE TO CALL CENTER ASSISTANT PO2 S/T STATUS OF FINGERS. WILL CONTINUE TO TRY TO CALL CENTER ASSISTANT PO2 ELSEWHERE.
--- NOTE | 2020-08-08 19:30 | NUR ---
REPORT REC'D AND CARE ASSUMED, REC'D PT AWAKE, ALERT, AND ORIENTED X 4, ON ROOM AIR WATCHING TV WITH FAMILY AT BS, IOANA KAHNG CDI, SALINE LOCKED, DIGITS ON BILATERAL HANDS COLD AND PEELING AROUND THE FINGERTIPS, PT COMPLAINS OF SEVERE PAIN IF FINGERTIPS BUMPED, LEFT STUMP NOTED, RIGHT FOOT WITH PREVIOUS TOE AMPUTATION, PROSTHETIC LEG AT BS, PT REQUESTING ICE CHIPS, BED IN LOW POSITION, CALL LIGHT IN REACH.
--- NOTE | 2020-08-08 21:00 | NUR ---
EVENING MEDS GIVEN, PT REFUSED MIRALAX STATES IT MAKES ME GO TO THE BATHROOM TOO MUCH, FSBS 194, PT REFUSED 4 UNITS HUMALOG ORDERED PER S/S BUT STATES " I JUST NEED THE 50 UNITS OF LANTUS", LANTUS GIVEN, PT DENIES FURTHER NEEDS.
--- NOTE | 2020-08-08 22:35 | NUR ---
PT REQUESTING TO GET UP TO BATHROOM, OFFERED BS COMMODE, STATES " IF I CAN USE THAT WHEELCHAIR I CAN USE THE TOILET, W/C PROVIDED FROM HALLWAY AND ASSISTANCE PROVIDED, PT TRANSFERRED SELF TO W/C AND COMMODE WITH MINIMAL ASSISTANCE, COMPLETE LINEN CHANGE PROVIDED, PT ASSISTED BACK TO BED AND PT DENIES FURTHER NEEDS.
[2020-08-09] VITALS (17 sets, daily range): BP systolic 112–192; BP diastolic 66–98
[2020-08-09 07:50] LABS: HEMOGLOBIN 10.6 g/dL (13.5-17.5); MCH 28.2 pg (26.0-34.0); MEAN PLATELET VOLUME 7.7 fL (7.4-10.4); PLATELET COUNT 497 10x3/uL (130-400); RBC 3.74 10x6/uL (4.20-6.10); RDW 16.4 % (11.5-14.5); WBC 27.6 10x3/uL (4.8-10.8)
--- NOTE | 2020-08-09 08:00 | NUR ---
PT A&A. DENIES ANY PAIN AT THIS TIME. STATES THAT HE HURTS WHEN HE TOUCHES HIS FINGERS. HE'S ON RA. RIJ CVL SALINE LOC. R-SUB CVL HEP LOCKED. MEAL TRAY DELIVERED AND SET UP. ATE 100% OF BREAKFAST. ASKING WHERE HIS SPOUSE WAS. STATED HE HAD FAMILY COMING IN OUT OF TOWN. INFORMED OF VISITATION RULES. ICE CHIPS PROVIDED. DENIES OTHER NEEDS AT THIS TIME. CALL LIGHT IN REACH. WILL CONTINUE TO MONITOR.
[2020-08-09 08:34] LABS: EOSINOPHILS 4 % (0-7); LYMPHOCYTES 12 % (15-50); MONOCYTES 3 % (2-11); NEUTROPHILS 81 % (40-80)
[2020-08-09 08:35] LABS: PLATELET ESTIMATE INCREASED
[2020-08-09 08:39] LABS: CALCIUM 9.3 mg/dL (8.5-10.1); CARBON DIOXIDE 27.3 mmol/L (21.0-32.0); CREATININE - SERUM 11.4 mg/dL (0.6-1.3); POTASSIUM - SERUM 4.3 mmol/L (3.5-5.1); VANCOMYCIN - RANDOM 20.2 ug/mL (10.0-20.0)
--- NOTE | 2020-08-09 15:57 | NUR ---
DR. GUTIERREZ NOTIFIED UNABLE TO REPLACE CVL TO RIJ. WILL NEED TO USE HEMOSPLIT. OKAY TO USE. HEP LOC WHEN NOT IN USE.
--- NOTE | 2020-08-09 17:56 | NUR ---
CALLED DR GUTIERREZ TO SEE IF OKAY TO TRANSFER PT TO FLOOR. STATED FOR THE FLOOR TO HAVE PT ON TELEMETRY. WILL PLACE ORDERS.
--- NOTE | 2020-08-09 19:23 | NUR ---
REPORT RECEIVED. PATIENT IS AAOX4, UP IN BATHROOM. FAMILY MEMBER AT BEDSIDE. NO S/S OF DISTRESS OBSERVED, RR EVEN AND UNLABORED ON ROOM AIR. PATIENT DENIES NEEDS AT THIS TIME. CL IN REACH, BED LOCKED AND LOWERED. WILL CPOC.
[2020-08-10] VITALS: BP 147/61
[2020-08-10 04:00] VITALS: BP 133/72
[2020-08-10 05:39] LABS: EOSINOPHILS 5.1 % (0-7); HEMATOCRIT 28.6 % (42.0-54.0); HEMOGLOBIN 9.3 g/dL (13.5-17.5); LYMPHOCYTES 6.7 % (15-50); MCH 28.7 pg (26.0-34.0); MCHC 32.5 g/dL (31.0-37.0); MCV 88.3 fL (80.0-100.0); MEAN PLATELET VOLUME 7.5 fL (7.4-10.4); MONOCYTES 14.1 % (2-11); NEUTROPHILS 73.1 % (40-80); PLATELET COUNT 540 10x3/uL (130-400); RBC 3.23 10x6/uL (4.20-6.10); RDW 16.2 % (11.5-14.5); WBC 24.9 10x3/uL (4.8-10.8)
[2020-08-10 05:49] LABS: ANION GAP 13.9 mmol/L (8-16); CALCIUM 9.1 mg/dL (8.5-10.1); CARBON DIOXIDE 27.5 mmol/L (21.0-32.0); CREATININE - SERUM 13.3 mg/dL (0.6-1.3); POTASSIUM - SERUM 4.4 mmol/L (3.5-5.1); VANCOMYCIN - RANDOM 18.6 ug/mL (10.0-20.0)
--- NOTE | 2020-08-10 07:00 | NUR ---
RECEIVED REPORT. ASSUMED CARE OF PATIENT. CALL LIGHT WITHIN REACH. PATIENT AWAKE/ALERT WITH ATTENTION TOWARD TELEVISION. DENIES NEEDS AT THIS TIME. IV FLUIDS TO RIGHT CHEST HEMOSPLIT AT KVO. PATIENT FOR DIALYSIS TODAY. WHITE BOARD UPDATED, BEDSIDE SHIFT REPORT COMPLETE. NO DISTRESS.
[2020-08-10 07:44] VITALS: BP 157/58
--- NOTE | 2020-08-10 08:47 | OP ---
PATIENT NAME: JUAN MCKENNA MEDICAL RECORD: [id number] :74 LOCATION:D.M2 D.0 ADMISSION DATE:07/30/20 SURGEON: RICARDO BLUE MD DATE OF OPERATION: 08/09/2020 PREOPERATIVE DIAGNOSIS: Malfunctioning right neck internal jugular central venous catheter. POSTOPERATIVE DIAGNOSIS: Malfunctioning right neck internal jugular central venous catheter with inability to change out the catheter for a longer catheter. PROCEDURE: Attempted right neck central venous line placement. SURGEON: Ricardo Blue MD TRADE MARK ATTORNEY: None. BLOOD LOSS: 25 cc. ANESTHESIA: Local. I received a call from the nursing staff stating that the central venous line was leaking fluid from below the skin. I came and saw the patient. This was a very high stick. This was likely due to the fact that the patient has internal jugular veins that terminates into a very fine collateral vessels under both clavicles. This has been observed radiographically when I performed venograms on the patient. The risks, possible complications, and alternatives of the procedure were explained to the patient. He elected to proceed. OPERATIVE COURSE: The patient was seen in his bed. He was positioned supine. The central venous line and the right neck were sterilely prepped and draped. Sutures were cut. I advanced a guidewire down through the middle port. The central venous line was removed. A 20-cm central venous line was then advanced and would not advance all the way. I was able to get it to advance a good bit; however, after removing the guidewire, it would not aspirate and would barely flush. I then advanced a 0.035 Glidewire. Again, there was resistance when I advanced the Glidewire through the central venous line. I could not get the Glidewire and central venous catheter to advance down the internal jugular vein into the right brachiocephalic vein. The procedure was terminated. Central venous line and the wire were removed. Pressure was held at the right neck for 3 minutes. A sterile dressing was applied. I have instructed the nursing staff to begin using the patient's groin dialysis catheter as the patient's source for vascular access. TRANSINT:[id number] Voice Confirmation ID: [id number] DOCUMENT ID: [id number] OPERATIVE REPORT [id number] JUAN MCKENNA ROBERT MD at 0847 CC: [id number] DICTATION DATE: 08/09/20 1608 ICE CREAM SCOOPER: 08/09/201954 ADM IN [facility] [address] [place] [id number]
--- NOTE | 2020-08-10 10:40 | NUR ---
PATIENT IN DIALYSIS RECIEVING TREATMENT. PATIENT LEFT UNIT VIA BED IN NO ACUTE DISTRESS.
--- NOTE | 2020-08-10 11:50 | NUR ---
FSBS 194. PATIENT REMAINS IN DIALYSIS WITH 2 HOURS LEFT ON CURRENT TREATMENT AND UNABLE TO CONSUME NOON MEAL. INSULIN HELD.
--- NOTE | 2020-08-10 13:58 | NUR ---
DIALYSIS COMPLETE, 2 LITERS OFF. PATIENT BACK TO UNIT SOON.
[2020-08-10 15:28] VITALS: BP 140/60
--- NOTE | 2020-08-10 17:19 | NUR ---
fsbs 163. 4 units humalog administered per sliding scale. tylenol administered for hand pain. hand cream provided for hand dryness. no distress.
[2020-08-10 20:00] VITALS: BP 137/79
--- NOTE | 2020-08-10 20:00 | NUR ---
REPORT RECEIVED. PT A&O, UP IN BED WITH AT BEDSIDE. NO S/S DISTRESS OBSERVED. RR EVEN & UNLABORED ON RA. R CHEST HEME SPLIT INFUSING NS @ KVO. L ARM RESERVE W/ FISTULA, NO BRUIT/THRILL. SR 94 ON TELE. BED LOCKED AND LOWERED, CL IN REACH. WILL CONT POC.
[2020-08-11] VITALS: BP 160/79
[2020-08-11 04:00] VITALS: BP 143/76
[2020-08-11 08:00] VITALS: BP 175/80
[2020-08-11 10:58] LABS: BASOPHILS 1.1 % (0-2); EOSINOPHILS 3.6 % (0-7); HEMATOCRIT 29.9 % (42.0-54.0); HEMOGLOBIN 9.5 g/dL (13.5-17.5); LYMPHOCYTES 7.9 % (15-50); MCH 28.1 pg (26.0-34.0); MCHC 31.8 g/dL (31.0-37.0); MCV 88.4 fL (80.0-100.0); MEAN PLATELET VOLUME 7.4 fL (7.4-10.4); MONOCYTES 14.2 % (2-11); NEUTROPHILS 73.2 % (40-80); PLATELET COUNT 633 10x3/uL (130-400); RBC 3.38 10x6/uL (4.20-6.10); RDW 16.5 % (11.5-14.5); WBC 25.9 10x3/uL (4.8-10.8)
[2020-08-11 11:05] LABS: ANION GAP 14.5 mmol/L (8-16); CALCIUM 9.4 mg/dL (8.5-10.1); CARBON DIOXIDE 29.5 mmol/L (21.0-32.0); CREATININE - SERUM 10.7 mg/dL (0.6-1.3); VANCOMYCIN - RANDOM 14.9 ug/mL (10.0-20.0)
[2020-08-11 12:00] VITALS: BP 191/87
--- NOTE | 2020-08-11 12:21 | NUR ---
Nutrition Reassessment/Follow-up: NPO for EGD. Reports good appetite/PO intake otherwise. Denies N/V/C/D. HD yesterday (-2L). Wt: 261.2# (08/09); 257.9# (08/07)Adj BW: 185.2# Last BM: 08/10 Labs noted: K+ 4.0, Glu 87, Ca 9.4 Meds noted: Carafate, Protonix, Lantus, Humalog, Renagel, NS @ KVO Est needs: 9216-3593 kcal/day (30-35 kcal/kg adj BW) 100-110 g protein/day (1.2-1.3 g/kg adj BW) Fluid: 1000 mL + UOP Nutrition Dx: -Altered nutrition-related lab values R/T ESRD, DM AEB BUN 30, Cre 10.7, GFR 7, elev Glu. Nutrition Goals: -PO intake >=75% avg of meals/snacks. -Meet est fluid needs without fluid overload. -Stable dry wt. -Glu at or near normal. Nutrition Intervention: -Resume renal carb consistent diet when medically feasible. -Monitor wt. -RD will follow up within 5-7 days.
[2020-08-11 20:00] VITALS: BP 163/78
--- NOTE | 2020-08-11 20:00 | NUR ---
REPORT RECEIVED. PT A&O, UP IN BED WITH , FREDDIE, AT BEDSIDE. NO S/S OF DISTRESSS OF OBSERVED. RR EVEN & UNLABORED. PT REPORTS FEELING LIKE HE'S "LAZY BREATHING"; IF HE WERE HAVING TO WORK HARD TO BREATH. BREATH SOUNDS CLEAR TO AUSCULTATION. O2 SAT 97% ON 2L. EDUCATED PT THAT HE MAY BE STILL FEELING THE EFFECTS OF THE ANESTHESIA FROM HIS PROCEDURE. H/S TO R CHEST PATENT W/ NS INFUSING. 97 SR ON TELE. BED LOCKED AND LOWERED, CL IN REACH. WILL CONT POC.
[2020-08-12] VITALS: BP 170/95
[2020-08-12 03:08] LABS: OVA + PARASITE EXAM Final report (())
[2020-08-12 04:00] VITALS: BP 163/70
--- NOTE | 2020-08-12 07:00 | NUR ---
PT LYING IN BED WITH HOB ELEVATED 3O DEGREES. RESP EVEN AND UNLABORED. O2 VIA NC AT [address] AAO X4[address] CLIR. BED IN LOWEST POSITION. SIDE RAILS X2
[2020-08-12 07:44] VITALS: BP 185/80
--- NOTE | 2020-08-12 09:00 | NUR ---
PT LEFT UNIT FOR DIALYSIS ACCOMPANIED BY HOSPITAL STAFF
--- NOTE | 2020-08-12 13:00 | NUR ---
PT RETURNED TO UNIT ACCOMPANIED BY HOSPITAL STAFF
[2020-08-12 15:37] VITALS: BP 172/80
[2020-08-13] VITALS: BP 124/64; BP 141/66
--- NOTE | 2020-08-13 03:40 | NUR ---
REPORT RECEIVED. PT A&O, UP IN BED W/ AT BEDSIDE. NO S/S OF DISTRESS OBSERVED. RR EVEN & UNLABORED ON RA. H/S INFUSING NS KVO + ATBS. SR 77 ON TELE. BED LOCKED AND LOWERED, CL IN REACH. WILL CONT POC.
[2020-08-13 05:00] VITALS: BP 176/93
[2020-08-13 06:54] LABS: CARBON DIOXIDE 29.9 mmol/L (21.0-32.0); CREATININE - SERUM 9.5 mg/dL (0.6-1.3); PHOSPHOROUS 5.7 mg/dL (2.5-4.9); POTASSIUM - SERUM 3.9 mmol/L (3.5-5.1); VANCOMYCIN - RANDOM 21.3 ug/mL (10.0-20.0)
[2020-08-13 06:55] LABS: BASOPHILS 0.7 % (0-2); HEMATOCRIT 27.6 % (42.0-54.0); HEMOGLOBIN 8.8 g/dL (13.5-17.5); LYMPHOCYTES 12.6 % (15-50); MCH 28.6 pg (26.0-34.0); MCHC 31.9 g/dL (31.0-37.0); MCV 89.6 fL (80.0-100.0); MEAN PLATELET VOLUME 7.3 fL (7.4-10.4); MONOCYTES 16.6 % (2-11); NEUTROPHILS 68.1 % (40-80); PLATELET COUNT 707 10x3/uL (130-400); RBC 3.08 10x6/uL (4.20-6.10); RDW 16.2 % (11.5-14.5)
--- NOTE | 2020-08-13 10:33 | NUR ---
ART LINE IN RT GROIN APPLIED IN OR REMOVED IN RR @1010
--- NOTE | 2020-08-13 11:10 | NUR ---
OK TO TRANSPORT TO FLOOR PER DR [email or web address]@[id number]
[2020-08-13 11:25] VITALS: BP 162/97
--- NOTE | 2020-08-13 11:29 | NUR ---
JUST REC'D BACK FROM SURGERY SUITE AT THIS TIME WITH DRESSING NOTED TO BOTH HAND. AWAKE AND ALERT. RESP EVEN AND UNLABORED WITH NO DISTRESS NOTED. CAN EXPRESS NEEDS AND WANTS. NO C/O NOTED OR VOCIED. C/L IN REACH AT BEDSIDE.
--- NOTE | 2020-08-13 12:43 | NUR ---
I have reviewed this patient and I concur with the Shift Assessment completed by the Licensed Practical Nurse today this shift.
[2020-08-13 15:41] VITALS: BP 108/59
--- NOTE | 2020-08-13 20:00 | NUR ---
REPORT RECEIVED. PT A&O, WATCHING TV W/ AND MOTHER AT BEDSIDE. NO S/S OF DISTRESS OBSERVED. RR EVEN & UNLABORED ON RA. HEMESPLIT TO R CHEST INFUSING NS. SR ON TELE. BED LOCKED AND LOWERED, CL IN REACH. WILL CPOC.
--- NOTE | 2020-08-13 20:00 | NUR ---
REPORT RECEIVED. PT A&O, UP IN BED WATCHING TV. NO S/S OF DISTRESS OBERVED. RR EVEN & UNLABORED ON RA. IV'S TO R FA & WRIST PATENT W/ HEP DRIP AND ATBS INFUSING. BED LOCKED AND LOWERED, CL IN REACH. WILL CPOC.
[2020-08-13 23:30] VITALS: BP 144/80
[2020-08-14 04:11] VITALS: BP 178/71
[2020-08-14 06:24] LABS: BASOPHILS 0.6 % (0-2); EOSINOPHILS 2.7 % (0-7); HEMATOCRIT 27.8 % (42.0-54.0); HEMOGLOBIN 8.8 g/dL (13.5-17.5); LYMPHOCYTES 8.8 % (15-50); MCHC 31.8 g/dL (31.0-37.0); MCV 87.9 fL (80.0-100.0); MEAN PLATELET VOLUME 7.2 fL (7.4-10.4); MONOCYTES 10.8 % (2-11); NEUTROPHILS 77.1 % (40-80); PLATELET COUNT 720 10x3/uL (130-400); RBC 3.16 10x6/uL (4.20-6.10); WBC 18.9 10x3/uL (4.8-10.8)
--- NOTE | 2020-08-14 06:45 | NUR ---
PT LYING IN BED WITH EYES CLOSED. RESP EVEN AND UNLABORED. RAISES TO VERBAL SITMULI. AAO X4. DENIES NEEDS AT THIS TIME. CLIR. BED IN LOWEST POSITION. SIDE RAILS X2. AT BEDSIDE
[2020-08-14 07:42] VITALS: BP 183/90
[2020-08-14 08:35] LABS: ANION GAP 18.6 mmol/L (8-16); CALCIUM 9.1 mg/dL (8.5-10.1); CARBON DIOXIDE 25.4 mmol/L (21.0-32.0); CREATININE - SERUM 11.2 mg/dL (0.6-1.3); VANCOMYCIN - RANDOM 20.2 ug/mL (10.0-20.0)
[2020-08-14 11:02] VITALS: BP 169/95
--- NOTE | 2020-08-14 12:05 | NUR ---
PT LEFT UNIT FOR DIALYSIS ACCOMPANIED BY HOSPITAL STAFF
[2020-08-14] MEDS ORDERED: VIBRAMYCIN 100100 MG PO ×2 (12:14→12:19)
--- NOTE | 2020-08-14 13:17 | NUR ---
OUT OF ROOM IN DIALYSIS BY BED. WILL CONT. PLAN OF CARE.
--- NOTE | 2020-08-14 15:34 | NUR ---
I have reviewed this patient and I concur with the Shift Assessment completed by the Licensed Practical Nurse today this shift.
--- NOTE | 2020-08-14 16:00 | NUR ---
PT RETURNED TO UNIT FROM DIALYSIS ACCOMPANIED BY HOSPITAL STAFF
--- NOTE | 2020-08-14 16:20 | NUR ---
PT DISCHARGED HOME WITH FAMILY MEMBER. DISCHARGE INSTRUCTIONS PROVIDED VERBALLY AND WRITTEN. PT VERBALIZED UNDERSTANDING.
--- NOTE | 2020-08-16 17:49 | MORECARE ---
CASE MANAGEMENT DISCHARGE SUMMARY PATIENT: JUAN MCKENNA UNIT: [id number] ADM DATE: 07/30/20 AGE: 49 : 74 SEX: M ROOM/BED: D.2110 AUTHOR: YANA,DOC PHYSICIAN: REFERRING PHYSICIAN: LAILA ABEL DO DATE OF SERVICE: 08/16/20 Case Management Discharge Planning Summary DCP REVIEW SUMMARY ANTICIPATED D/C DATE: EXPECTED LOS : CASE STATUS: DCP Complete INITIAL REVIEW: 07/30/2020 INITIAL REVIEWER: Mariella Mckenna FINAL DISCHARGE DISPOSITION: : FINAL REVIEWER: FINAL REVIEW DATE: DCP Focus Questions & Answers QUESTION: ANSWER : PATIENT: JAUN MCKENNA ENCOUNTER: [id number] MEDICAL RECORD#: [id number] ADMISSION DATE: 07/30/2020 DISCHARGE DATE: 08/14/2020 ATTENDING MD: CHAPIS: AGE: 49 MARITAL STATUS: S DC PLAN ID: [id number] FACILITY: [facility] PRINTED ON: 08/16/20 17:49 CT All edits/amendments must be made on the electronic document DICTATION DATE: 08/16/201748 EMPLOYEE RELATIONS CONSULTANT: OLIMPIA 08/16/201748 RPT#: [id number] DC DATE:08/14/20 STATUS: DIS IN [facility] [address] [place] [address] END OF REPORT
--- NOTE | 2020-08-16 18:03 | MORECARE ---
CASE MANAGEMENT DISCHARGE SUMMARY PATIENT: JUAN MCKENNA UNIT: [id number] ADM DATE: 07/30/20 AGE: 49 : 74 SEX: M ROOM/BED: D.2110 AUTHOR: YANA,DOC PHYSICIAN: REFERRING PHYSICIAN: LAILA ABEL DO DATE OF SERVICE: 08/16/20 Case Management Discharge Planning Summary DCP REVIEW SUMMARY ANTICIPATED D/C DATE: EXPECTED LOS : CASE STATUS: DCP Complete INITIAL REVIEW: 07/30/2020 INITIAL REVIEWER: Mariella Mckenna FINAL DISCHARGE DISPOSITION: 01 : Home or Self Care (Routine Discharge) FINAL REVIEWER: Jaclyn Campbell FINAL REVIEW DATE: 08/16/2020 DCP Focus Questions & Answers DCP Screen QUESTION: ANSWER High Risk Factors: : Hosp related to CHF, COPD, DM, End Stage Ds, CVA, CA DCP Evaluation QUESTION: ANSWER Patient's ability to cope with chronic illness : d. No chronic illness Would patient like to participate in any Care Coordination programs (if applicable): : Not applicable Mental health screen: : No mental health history DCP Re-evaluation QUESTION: ANSWER Would patient like to participate in any Care Coordination programs (if applicable): : Not applicable PATIENT: JUAN MCKENNA ENCOUNTER: [id number] MEDICAL RECORD#: [id number] ADMISSION DATE: 07/30/2020 DISCHARGE DATE: 08/14/2020 ATTENDING MD: CHAPIS: AGE: 49 MARITAL STATUS: S DC PLAN ID: [id number] FACILITY: [facility] PRINTED ON: 08/16/20 18:03 CT All edits/amendments must be made on the electronic document DICTATION DATE: 08/16/201802 NATURAL HISTORY COLLECTIONS CURATOR: DM 08/16/201802 RPT#: [id number] DC DATE:08/14/20 STATUS: DIS IN [facility] [address] [place] [address] END OF REPORT
--- NOTE | 2020-08-16 18:17 | MORECARE ---
CASE MANAGEMENT DISCHARGE SUMMARY PATIENT: JUAN MCKENNA UNIT: [id number] ADM DATE: 07/30/20 AGE: 49 : 74 SEX: M ROOM/BED: D.2110 AUTHOR: CALLIE MILLAN PHYSICIAN: REFERRING PHYSICIAN: LAILA ABEL DO DATE OF SERVICE: 08/16/20 Case Management Discharge Planning Summary COMMENTS ENTERED DATE: 08/16/20 18:06 CT COMMENT TYPE: Discharge Planning REVIEWER: Jaclyn Campbell LATE ENTRY 08/14/20 CM spoke with patient to complete initial dc planning assessment. CM educated patient on the CM role and verbal consent given by patient to complete assessment. Patient lives at home with family. Patient is partially dependent with ADLs At discharge patient plans to return home and feels this is a safe discharge. CM discussed availability of home health, rehab services, and medical equipment. Patient will have family to transport home. Patient has hemodialysis MWF Patient denied known discharge needs at this time. CM will continue to follow and will assist as needed with dc plans/needs. DCP REVIEW SUMMARY ANTICIPATED D/C DATE: EXPECTED LOS : CASE STATUS: DCP Complete INITIAL REVIEW: 07/30/2020 INITIAL REVIEWER: Mariella Antwon FINAL DISCHARGE DISPOSITION: 01 : Home or Self Care (Routine Discharge) FINAL REVIEWER: Jaclyn Campbell FINAL REVIEW DATE: 08/16/2020 DCP Focus Questions & Answers DCP Screen QUESTION: ANSWER High Risk Factors: : Hosp related to CHF, COPD, DM, End Stage Ds, CVA, CA DCP Evaluation QUESTION: ANSWER Patient's ability to cope with chronic illness : a. Adequate (0-3 ED visits in 6 mos., adequate financial resources, attends scheduled appts.) Family / Caregiver's ability to cope with chronic illness: : b. Minimal (occasionally not dependable to meet pt's. needs, can meet pt's. basic ADL's) Patient's current cognitive status: : *Oriented to person, place, situation, time and present Patient gives permission to discuss discharge plans with: (name, relationship and number) : Lay Warren [phone] Does the patient have the ability to pay for or attain post discharge needs / services? : Yes Functional screen assessment: : Unable to manage ADLs without immediate ongoing assistance Family / Caregiver's ability to cope with chronic illness: : a. Adequate (ability to meet patient's medical needs, ensures patient attends medical appts.) Physical Status: : Compromised skin integrity Is there a likelihood that the patient will require additional services to return to the preadmission environment? : No Living Arrangements: : Home with Extended Family Partial Dependence, assistance required for: : Ambulation / Mobility Results of this evaluation have been discussed with: : Patient Patient with capacity for self-care or can be cared for in same environment as prior to hospitalization? : Yes Baseline cognitive status: : *Oriented to person, place, situation, time and present Medication Management: : Patient states can read and understand medication labels Pharmacy name(s): : [facility] Does Patient have transportation to get home and to follow-up medical appointments when discharged from the hospital? : Yes Would patient like to participate in any Care Coordination programs (if applicable): : Not applicable Does the patient have electricity at home? : Yes Does the patient have running water in their house? : Yes Equipment in use: : Walker - Rolling Mental health screen: : No mental health history Resources / Services in place: : Dialysis - facility hemodialysis -W- DCP Re-evaluation QUESTION: ANSWER Would patient like to participate in any Care Coordination programs (if applicable): : Not applicable PATIENT: JUAN MCKENNA ENCOUNTER: [id number] MEDICAL RECORD#: [id number] ADMISSION DATE: 07/30/2020 DISCHARGE DATE: 08/14/2020 ATTENDING MD: CHAPIS: AGE: 49 MARITAL STATUS: S DC PLAN ID: [id number] FACILITY: [facility] PRINTED ON: 08/16/20 18:17 CT All edits/amendments must be made on the electronic document DICTATION DATE: 08/16/201816 INSPECTOR BICYCLE: OLIMPIA 08/16/201816 RPT#: [id number] DC DATE:08/14/20 STATUS: DIS IN [facility] [address] [place] [address] END OF REPORT
== END 2020-08-14 16:21 | disposition home or self-care (01) | DRG 853 ==
LOC: D.ER 09:57 → D.EDHOLD 13:27 → D.ICU 13:27 → D.M2 13:27 → D.ICU 08-05 13:36 → D.CVICU 08-08 18:32 → D.ICU 08-09 17:21 → D.M2 08-09 18:38
PROVIDERS: Emergency Medicine; General Practice; Internal Medicine Nephrology; Radiology Vascular & Interventional Radiology; ADMIT Internal Medicine; ATTEND Internal Medicine
PROC: 037A3ZZ Dilation of Left Ulnar Artery, Percutaneous Approach (ICD-10-PCS; 2020-07-31)
PROC: 037C3ZZ Dilation of Left Radial Artery, Percutaneous Approach (ICD-10-PCS; 2020-07-31)
PROC: 05HN33Z Insertion of Infusion Device into Left Internal Jugular Vein, Percutaneous Approach (ICD-10-PCS; 2020-08-04)
PROC: B544ZZA Ultrasonography of Left Jugular Veins, Guidance (ICD-10-PCS; 2020-08-04)
PROC: 04HY32Z Insertion of Monitoring Device into Lower Artery, Percutaneous Approach (ICD-10-PCS; principal; 2020-08-05)
PROC: 0BH17EZ Insertion of Endotracheal Airway into Trachea, Via Natural or Artificial Opening (ICD-10-PCS; 2020-08-05)
PROC: 5A1935Z Respiratory Ventilation, Less than 24 Consecutive Hours (ICD-10-PCS; 2020-08-05)
PROC: 0HQ4XZZ Repair Neck Skin, External Approach (ICD-10-PCS; 2020-08-06)
PROC: 0D9M8ZX Drainage of Descending Colon, Via Natural or Artificial Opening Endoscopic, Diagnostic (ICD-10-PCS; 2020-08-07)
PROC: 0DB78ZX Excision of Stomach, Pylorus, Via Natural or Artificial Opening Endoscopic, Diagnostic (ICD-10-PCS; 2020-08-11)
PROC: 0X6P0Z2 Detachment at Left Index Finger, Mid, Open Approach (ICD-10-PCS; 2020-08-13)
PROC: 0X6S0Z2 Detachment at Right Ring Finger, Mid, Open Approach (ICD-10-PCS; 2020-08-13)
PROC: 0X6 Anatomical Regions, Upper Extremities, Detachment (ICD-10-PCS; 2020-08-13)
DX: A41.9 Sepsis, unspecified organism (principal); N18.6 End stage renal disease; I46.9 Cardiac arrest, cause unspecified; J96.00 Acute respiratory failure, unspecified whether with hypoxia or hypercapnia; G93.41 Metabolic encephalopathy; I13.2 Hypertensive heart and chronic kidney disease with heart failure and with stage 5 chronic kidney disease, or end stage renal disease; D62 Acute posthemorrhagic anemia; E11.52 Type 2 diabetes mellitus with diabetic peripheral angiopathy with gangrene; I96 Gangrene, not elsewhere classified; I73.1 Thromboangiitis obliterans [Buerger's disease]; Z99.2 Dependence on renal dialysis; E11.22 Type 2 diabetes mellitus with diabetic chronic kidney disease; K21.9 Gastro-esophageal reflux disease without esophagitis; I50.9 Heart failure, unspecified; Z72.0 Tobacco use; Z79.4 Long term (current) use of insulin; I95.9 Hypotension, unspecified; Z86.73 Personal history of transient ischemic attack (TIA), and cerebral infarction without residual deficits; E11.65 Type 2 diabetes mellitus with hyperglycemia; E87.5 Hyperkalemia; D63.1 Anemia in chronic kidney disease